=== PATIENT | male | born 1990 | race Caucasian/White ===

== ENCOUNTER 2017-09-24 15:47 | Emergency (ER) | payer OTHER ==
[~2017-09-24] VITALS: Ht 5871 cm; Wt 79.6 kg
[2017-09-24 19:18] LABS: BASOPHILS # (AUTO) 0.1 X10'3 (0-0.2); BASOPHILS % (AUTO) 0.6 % (0-1); EOSINOPHILS # (AUTO) 0.1 X10'3 (0-0.9); EOSINOPHILS % (AUTO) 1.4 % (0-6); HEMATOCRIT 44.1 % (42.0-52.0); HEMOGLOBIN 15.2 g/dl (14.0-17.9); LYMPHOCYTES # (AUTO) 1.8 X10'3 (1.1-4.8); LYMPHOCYTES % (AUTO) 20.2 % (21-51); MEAN CORPUSCULAR HGB CONC 34.5 % (33.0-36.5); MEAN CORPUSCULAR VOLUME 86.9 FL (78-98); MEAN PLATELET VOLUME 8.1 FL (7.4-10.4); MONOCYTES # (AUTO) 0.5 X10'3 (0-0.9); MONOCYTES % (AUTO) 5.8 % (2-12); NEUTROPHILS # (AUTO) 6.6 X10'3 (1.8-7.7); PLATELET COUNT 353 X10'3 (140-440); RED BLOOD COUNT 5.07 X10'6 (4.70-6.10); RED CELL DISTRIBUTION WIDTH 13.7 % (11.5-14.5); WHITE BLOOD COUNT 9.2 X10'3 (4.5-11.0)
[2017-09-24 19:43] LABS: ALANINE AMINOTRANSFERASE 52 U/L (12-78); ALBUMIN 4.1 G/DL (3.4-5.0); ALBUMIN/GLOBULIN RATIO 1.1 (1.1-1.5); ALKALINE PHOSPHATASE 89 IU/L (46-116); ANION GAP 8 (8-16); ASPARTATE AMINO TRANSFERASE 25 U/L (10-37); BILIRUBIN,TOTAL 1.2 MG/DL (0.1-1.0); BLOOD UREA NITROGEN 11 MG/DL (7-18); BUN/CREATININE RATIO 13.3 (5.4-32.0); CALCIUM 9.2 MG/DL (8.5-10.1); CHLORIDE 101 MMOL/L (99-107); CREATININE 0.83 MG/DL (0.60-1.10); ETHANOL < 0.010 GM/DL (0.0-0.010); GLUCOSE 98 MG/DL (70-104); SODIUM 140 MMOL/L (135-145); TOTAL CARBON DIOXIDE 30.6 MMOL/L (24-32); TOTAL PROTEIN 7.8 G/DL (6.4-8.2); eGFR > 90 ML/MIN
[2017-09-25 02:08] LABS: CLARITY,URINE Clear (Clear); GLUCOSE, URINE Negative (Neg); KETONES,URINE Negative (Neg); LEUKOCYTE ESTERASE ,URINE Trace (Neg); NITRITES, URINE Negative (Neg); OCCULT BLOOD,URINE Negative (Neg); PROTEIN,URINE Negative (Neg)
[2017-09-25 02:15] LABS: URINE AMPHETAMINE SCREEN POSITIVE (Neg); URINE BARBITUATE SCREEN NEGATIVE (Neg); URINE BENZODIAZEPINES SCREEN NEGATIVE (Neg); URINE CANNABINOID SCREEN NEGATIVE (Neg); URINE COCAINE SCREEN NEGATIVE (Neg); URINE METHADONE SCREEN NEGATIVE (Neg); URINE OPIATE SCREEN NEGATIVE (Neg); URINE PHENCYCLIDINE SCREEN NEGATIVE (Neg)
[2017-09-25 02:26] LABS: COLOR,URINE DARK YELLOW (Yellow); UA COLLECTION TYPE VOIDED
[2017-09-25 02:32] LABS: BACTERIA,URINE NONE SEEN /HPF (Neg); MUCUS STRANDS MANY /LPF (Neg); RBC,URINE NONE SEEN /HPF (0-2); SQUAMOUS EPITHELIAL CELL,UR FEW /LPF (FEW); WBC,URINE 0-4 /HPF (0-4)
[2017-09-25] MEDS ORDERED: sertraline 50mg tablet PO ONE (08:00)
[2017-09-25] MEDS ORDERED: NO HOME MEDS (09:56)
[2017-09-25] MEDS ORDERED: OLANZapine 2.5MG tablet PO SCH (21:00)
[2017-09-26 12:59] VITALS: BP 116/68
== END 2017-09-26 12:20 ==
LOC: ER 15:48
DX: R45.851 Suicidal ideations (principal); F32.9 Major depressive disorder, single episode, unspecified; F41.9 Anxiety disorder, unspecified; F15.10 Other stimulant abuse, uncomplicated
CPT/HCPCS: 36415; 80053; 80305; 80320; 81001; 84443; 85025; 99285

== ENCOUNTER 2017-11-04 17:02 | Emergency (ER) | payer OTHER ==
[~2017-11-04] VITALS: Ht 182.9 cm; Wt 95.1 kg
[~2017-11-04 17:02] MED LIST: NO HOME MEDS
[2017-11-04 18:16] LABS: BASOPHILS % (AUTO) 0.4 % (0-1); EOSINOPHILS # (AUTO) 0.2 X10'3 (0-0.9); EOSINOPHILS % (AUTO) 2.3 % (0-6); HEMATOCRIT 48.1 % (42.0-52.0); HEMOGLOBIN 16.4 g/dl (14.0-17.9); LYMPHOCYTES # (AUTO) 1.9 X10'3 (1.1-4.8); LYMPHOCYTES % (AUTO) 23.6 % (21-51); MEAN CORPUSCULAR HEMOGLOBIN 29.8 PG (27.0-31.0); MEAN CORPUSCULAR VOLUME 87.7 FL (78-98); MEAN PLATELET VOLUME 8.2 FL (7.4-10.4); MONOCYTES # (AUTO) 0.5 X10'3 (0-0.9); MONOCYTES % (AUTO) 6.2 % (2-12); NEUTROPHILS # (AUTO) 5.3 X10'3 (1.8-7.7); NEUTROPHILS % (AUTO) 67.5 % (42-75); PLATELET COUNT 353 X10'3 (140-440); RED BLOOD COUNT 5.49 X10'6 (4.70-6.10); RED CELL DISTRIBUTION WIDTH 14.1 % (11.5-14.5); WHITE BLOOD COUNT 7.9 X10'3 (4.5-11.0)
[2017-11-04 18:21] LABS: ALANINE AMINOTRANSFERASE 34 U/L (12-78); ALBUMIN 4.1 G/DL (3.4-5.0); ALBUMIN/GLOBULIN RATIO 1.2 (1.1-1.5); ALKALINE PHOSPHATASE 102 IU/L (46-116); ANION GAP 12 (8-16); ASPARTATE AMINO TRANSFERASE 14 U/L (10-37); BLOOD UREA NITROGEN 9 MG/DL (7-18); BUN/CREATININE RATIO 9.4 (5.4-32.0); CALCIUM 8.9 MG/DL (8.5-10.1); CHLORIDE 100 MMOL/L (99-107); CREATININE 0.96 MG/DL (0.60-1.10); ETHANOL < 0.010 GM/DL (0.0-0.010); GLUCOSE 103 MG/DL (70-104); POTASSIUM 3.5 MMOL/L (3.5-5.1); SODIUM 138 MMOL/L (135-145); TOTAL PROTEIN 7.4 G/DL (6.4-8.2); eGFR > 90 ML/MIN
[2017-11-05 05:33] LABS: URINE AMPHETAMINE SCREEN POSITIVE (Neg); URINE BARBITUATE SCREEN NEGATIVE (Neg); URINE BENZODIAZEPINES SCREEN NEGATIVE (Neg); URINE CANNABINOID SCREEN NEGATIVE (Neg); URINE COCAINE SCREEN NEGATIVE (Neg); URINE METHADONE SCREEN NEGATIVE (Neg); URINE OPIATE SCREEN NEGATIVE (Neg); URINE PHENCYCLIDINE SCREEN NEGATIVE (Neg)
[2017-11-06 05:57] VITALS: BP 101/60
[2017-11-06] MEDS ORDERED: QUET50TA PO (06:11)
[2017-11-06] MEDS ORDERED: MIRT30TA8 PO (06:11)
[2017-11-06] MEDS ORDERED: PRAZ1CAP5 PO (08:57)
[2017-11-06] MEDS ORDERED: mirtazapine 15mg tablet PO SCH (21:00)
[2017-11-06] MEDS ORDERED: QUEtiapine 25mg tablet PO SCH (21:00)
[2017-11-06] MEDS ORDERED: prazosin 1mg capsule PO SCH (21:00)
== END 2017-11-06 11:47 ==
LOC: ER 17:03
DX: R45.851 Suicidal ideations (principal); F41.9 Anxiety disorder, unspecified; F32.9 Major depressive disorder, single episode, unspecified; F15.10 Other stimulant abuse, uncomplicated
CPT/HCPCS: 36415; 80053; 80305; 80320; 85025; 99285

== ENCOUNTER 2017-12-04 16:39 | Inpatient (IN) | payer OTHER ==
[~2017-12-04] VITALS: Ht 177.8 cm; Wt 93.6 kg
[~2017-12-04 16:39] MED LIST changes: +MIRT30TA8 PO; +PRAZ1CAP5 PO; +QUET50TA PO; +etomidate 2mg/ml inj. ONE; +rocuronium 10mg/ml inj IV ONE
[2017-12-04] MEDS ORDERED: normal saline 1000ML IV soln IVB ONE (16:45)
[2017-12-04] MEDS ORDERED: midazolam 100mg in NS 100ml 100 ML IV PRN (17:05)
[2017-12-04] MEDS ORDERED: fentaNYL/PF 50MCG/1 ML 2ML syringe IV PRN ×2 (17:05→19:45)
[2017-12-04] MEDS ORDERED: hydrALAZINE 20mg/ml inj. IV ONE (17:10)
[2017-12-04] MEDS ORDERED: propofol 1000mg/100ml bottle 100 ML IV PRN ×2 (17:13→21:39)
[2017-12-04 17:20] LABS: HEMATOCRIT 49.3 % (42.0-52.0); HEMOGLOBIN 16.5 g/dl (14.0-17.9); MEAN CORPUSCULAR HEMOGLOBIN 29.3 PG (27.0-31.0); MEAN CORPUSCULAR HGB CONC 33.4 % (33.0-36.5); MEAN CORPUSCULAR VOLUME 87.6 FL (78-98); MEAN PLATELET VOLUME 8.5 FL (7.4-10.4); PLATELET COUNT 340 X10'3 (140-440); RED BLOOD COUNT 5.62 X10'6 (4.70-6.10); RED CELL DISTRIBUTION WIDTH 14.4 % (11.5-14.5); WHITE BLOOD COUNT 21.7 X10'3 (4.5-11.0)
[2017-12-04 17:27] LABS: INR 1.1 INR; PARTIAL THROMBOPLASTIN TIME 25 SECONDS (22-32); PROTHROMBIN TIME 11.1 SECONDS (9.0-12.0)
[2017-12-04 17:33] LABS: CLARITY,URINE SLIGHTLY CLOUDY (Clear); COLOR,URINE STRAW (Yellow); GLUCOSE, URINE NEGATIVE (Neg); KETONES,URINE NEGATIVE (Neg); LEUKOCYTE ESTERASE ,URINE NEGATIVE (Neg); NITRITES, URINE NEGATIVE (Neg); OCCULT BLOOD,URINE SMALL (Neg); PH,URINE 5.5 (4.8-8.0); PROTEIN,URINE 30 mg/dl (Neg); URINE AMPHETAMINE SCREEN NEGATIVE (Neg); URINE BARBITUATE SCREEN NEGATIVE (Neg); URINE BENZODIAZEPINES SCREEN NEGATIVE (Neg); URINE CANNABINOID SCREEN NEGATIVE (Neg); URINE COCAINE SCREEN NEGATIVE (Neg); URINE METHADONE SCREEN NEGATIVE (Neg); URINE OPIATE SCREEN NEGATIVE (Neg); URINE PHENCYCLIDINE SCREEN NEGATIVE (Neg); UROBILINOGEN,URINE 0.2 E.U/dL (0.2-1.0)
[2017-12-04] MEDS ORDERED: sodium bicarbonate (8.4%) 1 mEq/ml syringe IV ONE (17:35)
[2017-12-04 17:36] LABS: ABG BASE EXCESS -26.7 mmol/L (-2.0-3.0); ABG OXYGEN SATURATION 80.9 % (95-98); ABG PCO2 (T) 20.6 mmHg (35.0-48.0); ABG PH (T) 6.911 (7.350-7.450); ABG PO2 (T) 61.4 mmHg (83-108); ALLEN'S TEST Positive; FCOHb 0.3 % (0.5-1.5); FMetHb 0.8 % (0.3-1.12); PEEP 5 cm H2O; RESPIRATORY RATE 18 b/min; TOTAL HEMOGLOBIN 7.7 G/dl (14.0-18.0)
[2017-12-04 17:37] LABS: LACTIC SEPSIS 1.2 MMOL/L (0.4-2.0)
[2017-12-04 17:44] LABS: ALANINE AMINOTRANSFERASE 33 U/L (12-78); ALBUMIN/GLOBULIN RATIO 1.2 (1.1-1.5); ALKALINE PHOSPHATASE 82 IU/L (46-116); ASPARTATE AMINO TRANSFERASE 15 U/L (10-37); BILIRUBIN,TOTAL 0.5 MG/DL (0.1-1.0); BLOOD UREA NITROGEN 4 MG/DL (7-18); BUN/CREATININE RATIO 2.3 (5.4-32.0); CALCIUM 8.2 MG/DL (8.5-10.1); CHLORIDE 111 MMOL/L (99-107); CREATINE KINASE 101 U/L (39-308); CREATININE 1.72 MG/DL (0.60-1.10); ETHANOL < 0.010 GM/DL (0.0-0.010); GLUCOSE 111 MG/DL (70-104); MAGNESIUM 1.8 MG/DL (1.5-2.4); PHOSPHORUS 2.7 MG/DL (2.3-4.5); SODIUM 144 MMOL/L (135-145); TOTAL PROTEIN 7.3 G/DL (6.4-8.2); eGFR 48 ML/MIN
[2017-12-04 17:45] LABS: URIC ACID CRYSTALS 3+ /HPF (NEGATIVE)
[2017-12-04 17:48] LABS: ANION GAP 28 (8-16)
[2017-12-04 17:51] LABS: ACETAMINOPHEN < 2.0 UG/ML (10-30)
[2017-12-04 17:52] LABS: POTASSIUM 6.1 MMOL/L (3.5-5.1); TOTAL CARBON DIOXIDE < 5 MMOL/L (24-32)
[2017-12-04 17:52] LABS: BACTERIA,URINE FEW /HPF (Neg); RBC,URINE 0-2 /HPF (0-2); SQUAMOUS EPITHELIAL CELL,UR FEW /LPF (FEW); WBC,URINE 0-4 /HPF (0-4)
[2017-12-04] MEDS ORDERED: calcium chloride inj. 1,000 MG in normal saline 100ml IV soln 90 ML IV ONE (17:55)
[2017-12-04 17:58] LABS: PLATELET ESTIMATE NORMAL; TOTAL CELLS COUNTED 100; TOXIC GRANULATION 1+
[2017-12-04 17:59] LABS: TOXIC VACUOLATION 2+
[2017-12-04] MEDS ORDERED: CefTRIAXone 2gm/D5W 50ml 50 ML IV ONE (18:45)
[2017-12-04] MEDS ORDERED: acyclovir 1 GM inj IV SCH (18:50)
[2017-12-04] MEDS ORDERED: NORMAL SALINE IV SCH (18:55)
[2017-12-04] MEDS ORDERED: ACYCLOVIR IV SCH (18:55)
[2017-12-04] MEDS ORDERED: charcoal, activated 50 GM/240 ML bottle PO ONE (19:45)
[2017-12-04] MEDS ORDERED: acetaminophen 325mg tablet PO PRN (19:45)
[2017-12-04] MEDS ORDERED: ipratropium/albuterol 3ml nebule NEB PRN (19:45)
[2017-12-04] MEDS ORDERED: potassium Cl 20 mEq SR tablet PO PRN ×2 (19:45)
[2017-12-04] MEDS ORDERED: ondansetron/PF 4mg/2ml inj IV PRN (19:45)
[2017-12-04] MEDS ORDERED: potassium Cl 40MEQ/NS 500ml 500 ML IV PRN ×2 (19:45)
[2017-12-04] MEDS ORDERED: NORMAL SALINE IV ONE ×2 (19:58→23:10)
[2017-12-04] MEDS ORDERED: ACYCLOVIR IV ONE (19:58)
[2017-12-04] MEDS: docusate sod 100mg capsule PO SCH (20:00)
[2017-12-04] MEDS: magnesium 1gm/100ml D5W IVPB 100 ML IV SCH ×2 (20:06→21:38)
[2017-12-04 20:15] LABS: ALANINE AMINOTRANSFERASE 34 U/L (12-78); ALBUMIN 4.2 G/DL (3.4-5.0); ALBUMIN/GLOBULIN RATIO 1.2 (1.1-1.5); ALKALINE PHOSPHATASE 97 IU/L (46-116); ANION GAP 30 (8-16); ASPARTATE AMINO TRANSFERASE 21 U/L (10-37); BILIRUBIN,TOTAL 0.6 MG/DL (0.1-1.0); BLOOD UREA NITROGEN 6 MG/DL (7-18); BUN/CREATININE RATIO 2.7 (5.4-32.0); CALCIUM 8.8 MG/DL (8.5-10.1); CHLORIDE 109 MMOL/L (99-107); CREATININE 2.21 MG/DL (0.60-1.10); GLUCOSE 169 MG/DL (70-104); MAGNESIUM 1.9 MG/DL (1.5-2.4); PHOSPHORUS 3.5 MG/DL (2.3-4.5); POTASSIUM 5.8 MMOL/L (3.5-5.1); SODIUM 146 MMOL/L (135-145); TOTAL PROTEIN 7.8 G/DL (6.4-8.2); eGFR 36 ML/MIN
[2017-12-04 20:25] LABS: TOTAL CARBON DIOXIDE 7.2 MMOL/L (24-32)
[2017-12-04 20:26] LABS: ABG HCO3 3.7 mmol/L (22.0-26.0); ABG OXYGEN SATURATION 99.2 % (95-98); ABG PCO2 (T) 15.8 mmHg (35.0-48.0); ABG PH (T) 6.992 (7.350-7.450); ABG PO2 (T) 344.7 mmHg (83-108); FCOHb 0.3 % (0.5-1.5); FMetHb 0.8 % (0.3-1.12); FO2Hb 98.1 % (94-100); MINUTE VOLUME 18 L/min; PATIENT TEMPERATURE 37.2; PEEP 5 cm H2O; RESPIRATORY RATE 18 b/min; RESPIRATORY RATE (OBSERVED) 25 b/min; TIDAL VOLUME 475 mL; TOTAL HEMOGLOBIN 16.9 G/dl (14.0-18.0)
[2017-12-04 20:33] LABS: OSMOLALITY 333 MOSM/K (280-300)
[2017-12-04] MEDS: famotidine/PF 10 mg/ml inj IV SCH (20:43)
[2017-12-04] MEDS: heparin, porcine 5000 units/ml vial SQ SCH (20:43)
[2017-12-04 21:15] VITALS: BP 158/89
[2017-12-04] MEDS: sodium bicarbonate (8.4%) inj. 150 MEQ in dextrose 5%-water 1,000 ML IV SCH (21:26)
[2017-12-04 21:39] LABS: CLARITY,URINE Cloudy (Clear); GLUCOSE, URINE Negative (Neg); KETONES,URINE Negative (Neg); LEUKOCYTE ESTERASE ,URINE Negative (Neg); NITRITES, URINE Negative (Neg); OCCULT BLOOD,URINE Trace (Neg); PROTEIN,URINE 100 mg/dl (Neg); UROBILINOGEN,URINE 0.2 E.U/dL (0.2-1.0)
[2017-12-04 21:41] LABS: UA COLLECTION TYPE FOLEY CATH
[2017-12-04 21:47] LABS: RBC,URINE 0-2 /HPF (0-2); WBC,URINE NONE SEEN /HPF (0-4)
[2017-12-04 21:51] LABS: BACTERIA,URINE NONE SEEN /HPF (Neg); CAL OXALATE CRYSTALS 4+ /HPF (NEGATIVE); MUCUS STRANDS NONE SEEN /LPF (Neg); SQUAMOUS EPITHELIAL CELL,UR NONE SEEN /LPF (FEW)
[2017-12-04 22:01] LABS: COLOR,URINE STRAW (Yellow)
[2017-12-04 22:02] LABS: UA COLLECTION TYPE STRAIGHT CATH
[2017-12-04] MEDS: ipratropium/albuterol 3ml nebule NEB SCH (22:06)
[2017-12-04 22:27] LABS: UA EOSINOPHILS NO EOS /HPF
[2017-12-04 22:30] VITALS: BP 164/81
[2017-12-04 22:40] LABS: ABG BASE EXCESS -28.7 mmol/L (-2.0-3.0); ABG HCO3 3.5 mmol/L (22.0-26.0); ABG PCO2 (T) 18.8 mmHg (35.0-48.0); ABG PH (T) 6.885 (7.350-7.450); ABG PO2 (T) 255.5 mmHg (83-108); ALLEN'S TEST Positive; FCOHb 0.3 % (0.5-1.5); FMetHb 0.8 % (0.3-1.12); FO2Hb 97.9 % (94-100); MINUTE VOLUME 20 L/min; PATIENT TEMPERATURE 37.4; PEEP 5 cm H2O; RESPIRATORY RATE 18 b/min; RESPIRATORY RATE (OBSERVED) 25 b/min; TIDAL VOLUME 475 mL; TOTAL HEMOGLOBIN 16.3 G/dl (14.0-18.0)
[2017-12-04 23:00] VITALS: BP 153/79
[2017-12-04 23:07] LABS: BLOOD UREA NITROGEN 8 MG/DL (7-18)
[2017-12-04] MEDS ORDERED: FOMEPIZOLE IV ONE (23:10)
[2017-12-04 23:30] VITALS: BP 153/78
[2017-12-04] MEDS: FENTANYL-0.9 % NACL/PF 100 ML IV PRN (23:37)
[2017-12-05] VITALS (25 sets, daily range): BP systolic 120–171; BP diastolic 55–83
[2017-12-05] MEDS ORDERED: normal saline 1000ml 250 ML IV PRN ×2 (00:28→09:19)
[2017-12-05] MEDS ORDERED: heparin 1,000unit/ml 10ml vial 10 ML IV ONE ×2 (00:28→09:19)
[2017-12-05] MEDS ORDERED: heparin 1,000 units/ml 10ml inj HE ONE ×4 (00:35→09:25)
[2017-12-05] MEDS: propofol 1000mg/100ml bottle 100 ML IV PRN ×5 (01:38→20:56)
[2017-12-05] MEDS: ipratropium/albuterol 3ml nebule NEB SCH ×6 (02:31→23:20)
[2017-12-05 02:35] LABS: ALANINE AMINOTRANSFERASE 32 U/L (12-78); ALBUMIN 3.7 G/DL (3.4-5.0); ALKALINE PHOSPHATASE 97 IU/L (46-116); ASPARTATE AMINO TRANSFERASE 22 U/L (10-37); BILIRUBIN,TOTAL 0.3 MG/DL (0.1-1.0); BLOOD UREA NITROGEN 10 MG/DL (7-18); BUN/CREATININE RATIO 3.4 (5.4-32.0); CALCIUM 7.5 MG/DL (8.5-10.1); CHLORIDE 106 MMOL/L (99-107); CREATININE 2.98 MG/DL (0.60-1.10); GLUCOSE 258 MG/DL (70-104); MAGNESIUM 2.7 MG/DL (1.5-2.4); PHOSPHORUS 3.8 MG/DL (2.3-4.5); SODIUM 143 MMOL/L (135-145); TOTAL PROTEIN 7.3 G/DL (6.4-8.2); TROPONIN I < 0.04 NG/ML (0.0-0.05); eGFR 25 ML/MIN
[2017-12-05 02:55] LABS: POTASSIUM 6.5 MMOL/L (3.5-5.1)
[2017-12-05 02:56] LABS: ANION GAP 32 (8-16); TOTAL CARBON DIOXIDE < 5 MMOL/L (24-32)
[2017-12-05] MEDS ORDERED: heparin 10,000 units/1 ML INJ HE ONE (03:45)
[2017-12-05 04:10] LABS: ABG HCO3 12.6 mmol/L (22.0-26.0); ABG OXYGEN SATURATION 99.1 % (95-98); ABG PCO2 (T) 27.6 mmHg (35.0-48.0); ABG PH (T) 7.283 (7.350-7.450); ABG PO2 (T) 174.6 mmHg (83-108); ALLEN'S TEST Positive; FCOHb 0.3 % (0.5-1.5); FMetHb 0.5 % (0.3-1.12); FO2Hb 98.3 % (94-100); MINUTE VOLUME 16 L/min; PATIENT TEMPERATURE 38.1; PEEP 5 cm H2O; RESPIRATORY RATE 26 b/min; RESPIRATORY RATE (OBSERVED) 30 b/min; TIDAL VOLUME 500 mL; TOTAL HEMOGLOBIN 15.4 G/dl (14.0-18.0)
[2017-12-05] MEDS: sodium bicarbonate (8.4%) inj. 150 MEQ in dextrose 5%-water 1,000 ML IV SCH ×2 (05:49→14:13)
[2017-12-05 05:53] LABS: ALANINE AMINOTRANSFERASE 30 U/L (12-78); ALBUMIN 3.3 G/DL (3.4-5.0); ALBUMIN/GLOBULIN RATIO 1.1 (1.1-1.5); ALKALINE PHOSPHATASE 85 IU/L (46-116); ANION GAP 27 (8-16); ASPARTATE AMINO TRANSFERASE 17 U/L (10-37); BILIRUBIN,TOTAL 0.8 MG/DL (0.1-1.0); BLOOD UREA NITROGEN 7 MG/DL (7-18); BUN/CREATININE RATIO 2.8 (5.4-32.0); CALCIUM 7.2 MG/DL (8.5-10.1); CHLORIDE 102 MMOL/L (99-107); CREATININE 2.54 MG/DL (0.60-1.10); GLUCOSE 160 MG/DL (70-104); MAGNESIUM 1.8 MG/DL (1.5-2.4); PHOSPHORUS 3.1 MG/DL (2.3-4.5); POTASSIUM 3.6 MMOL/L (3.5-5.1); SODIUM 143 MMOL/L (135-145); TOTAL PROTEIN 6.4 G/DL (6.4-8.2); eGFR 30 ML/MIN
[2017-12-05 05:54] LABS: TOTAL CARBON DIOXIDE 13.8 MMOL/L (24-32)
[2017-12-05 06:37] LABS: BASOPHILS % (AUTO) 0 % (0-1); EOSINOPHILS % (AUTO) 0 % (0-6); HEMATOCRIT 44.4 % (42.0-52.0); HEMOGLOBIN 14.8 g/dl (14.0-17.9); LYMPHOCYTES # (AUTO) 1.3 X10'3 (1.1-4.8); LYMPHOCYTES % (AUTO) 4.3 % (21-51); MEAN CORPUSCULAR HEMOGLOBIN 29.1 PG (27.0-31.0); MEAN CORPUSCULAR HGB CONC 33.3 % (33.0-36.5); MEAN CORPUSCULAR VOLUME 87.6 FL (78-98); MEAN PLATELET VOLUME 9.3 FL (7.4-10.4); MONOCYTES # (AUTO) 1.6 X10'3 (0-0.9); NEUTROPHILS # (AUTO) 28.4 X10'3 (1.8-7.7); NEUTROPHILS % (AUTO) 90.7 % (42-75); PLATELET COUNT 254 X10'3 (140-440); RED BLOOD COUNT 5.07 X10'6 (4.70-6.10)
[2017-12-05 06:44] LABS: WHITE BLOOD COUNT 31.3 X10'3 (4.5-11.0)
[2017-12-05 07:39] LABS: TOTAL CELLS COUNTED 100
[2017-12-05 07:41] LABS: BURR CELLS 1+; PLATELET ESTIMATE NORMAL
[2017-12-05] MEDS: docusate sod 100mg capsule PO SCH ×2 (08:00→20:00)
[2017-12-05] MEDS ORDERED: NORMAL SALINE IV SCH (08:00)
[2017-12-05] MEDS ORDERED: FOMEPIZOLE IV SCH (08:00)
[2017-12-05] MEDS: famotidine/PF 10 mg/ml inj IV SCH ×2 (08:41→20:24)
[2017-12-05] MEDS: heparin, porcine 5000 units/ml vial SQ SCH ×2 (08:42→20:24)
[2017-12-05] MEDS ORDERED: LORazepam 2 mg/ml vial ONE (12:55)
[2017-12-05] MEDS: FENTANYL-0.9 % NACL/PF 100 ML IV PRN (14:12)
[2017-12-05] MEDS: LORazepam 2 mg/ml vial IV PRN (15:13)
[2017-12-05] MEDS ORDERED: phenytoin sod 50mg/ml 2ml vial IV SCH (16:35)
[2017-12-05] MEDS ORDERED: FOSphenytoin 500mg inj. 1,000 MG in normal saline 100ml IV soln 100 ML IV ONE (16:40)
[2017-12-05 16:46] LABS: ABG BASE EXCESS 1.4 mmol/L (-2.0-3.0); ABG PCO2 (T) 28.3 mmHg (35.0-48.0); ABG PH (T) 7.528 (7.350-7.450); ALLEN'S TEST Positive; FCOHb 0.1 % (0.5-1.5); FMetHb 0.3 % (0.3-1.12); FO2Hb 96.6 % (94-100); MINUTE VOLUME 17 L/min; PEEP 5 cm H2O; RESPIRATORY RATE 26 b/min; RESPIRATORY RATE (OBSERVED) 28 b/min
[2017-12-05] MEDS: mineral oil/petrolatum ophthal oint EACHEYE SCH (20:00)
[2017-12-06] VITALS (24 sets, daily range): BP systolic 142–174; BP diastolic 74–104
[2017-12-06] MEDS: normal saline 1000ml 1,000 ML IV SCH ×3 (00:28→19:28)
[2017-12-06] MEDS: propofol 1000mg/100ml bottle 100 ML IV PRN ×2 (01:37→08:09)
[2017-12-06] MEDS: mineral oil/petrolatum ophthal oint EACHEYE SCH ×4 (02:00→19:39)
[2017-12-06] MEDS: ipratropium/albuterol 3ml nebule NEB SCH ×6 (03:32→21:26)
[2017-12-06 03:45] LABS: ABG HCO3 31.5 mmol/L (22.0-26.0); ABG OXYGEN SATURATION 97.5 % (95-98); ABG PCO2 (T) 55.9 mmHg (35.0-48.0); ABG PH (T) 7.371 (7.350-7.450); ABG PO2 (T) 102.6 mmHg (83-108); ALLEN'S TEST Positive; FCOHb 0.3 % (0.5-1.5); FMetHb 0.5 % (0.3-1.12); FO2Hb 96.7 % (94-100); MINUTE VOLUME 7 L/min; PATIENT TEMPERATURE 37.6; PEEP 5 cm H2O; RESPIRATORY RATE 12 b/min; RESPIRATORY RATE (OBSERVED) 13 b/min; TIDAL VOLUME 500 mL; TOTAL HEMOGLOBIN 13.5 G/dl (14.0-18.0)
[2017-12-06 05:38] LABS: BASOPHILS % (AUTO) 0.2 % (0-1); EOSINOPHILS % (AUTO) 0 % (0-6); HEMATOCRIT 37.6 % (42.0-52.0); HEMOGLOBIN 12.9 g/dl (14.0-17.9); LYMPHOCYTES # (AUTO) 1.4 X10'3 (1.1-4.8); LYMPHOCYTES % (AUTO) 9.3 % (21-51); MEAN CORPUSCULAR HEMOGLOBIN 29.8 PG (27.0-31.0); MEAN CORPUSCULAR HGB CONC 34.4 % (33.0-36.5); MEAN CORPUSCULAR VOLUME 86.6 FL (78-98); MEAN PLATELET VOLUME 8.6 FL (7.4-10.4); MONOCYTES # (AUTO) 1.1 X10'3 (0-0.9); NEUTROPHILS # (AUTO) 12.8 X10'3 (1.8-7.7); NEUTROPHILS % (AUTO) 83.5 % (42-75); PLATELET COUNT 216 X10'3 (140-440); RED BLOOD COUNT 4.34 X10'6 (4.70-6.10); RED CELL DISTRIBUTION WIDTH 14.1 % (11.5-14.5); WHITE BLOOD COUNT 15.4 X10'3 (4.5-11.0)
[2017-12-06 06:15] LABS: ALANINE AMINOTRANSFERASE 23 U/L (12-78); ALBUMIN 2.9 G/DL (3.4-5.0); ALKALINE PHOSPHATASE 73 IU/L (46-116); ANION GAP 12 (8-16); ASPARTATE AMINO TRANSFERASE 15 U/L (10-37); BILIRUBIN,TOTAL 0.7 MG/DL (0.1-1.0); BLOOD UREA NITROGEN 14 MG/DL (7-18); BUN/CREATININE RATIO 3.1 (5.4-32.0); CALCIUM 7.1 MG/DL (8.5-10.1); CHLORIDE 100 MMOL/L (99-107); CREATININE 4.57 MG/DL (0.60-1.10); GLUCOSE 105 MG/DL (70-104); MAGNESIUM 2.3 MG/DL (1.5-2.4); PHOSPHORUS 6.4 MG/DL (2.3-4.5); SODIUM 141 MMOL/L (135-145); TOTAL PROTEIN 5.7 G/DL (6.4-8.2); eGFR 15 ML/MIN
[2017-12-06 06:16] LABS: POTASSIUM 3.2 MMOL/L (3.5-5.1)
[2017-12-06] MEDS: famotidine/PF 10 mg/ml inj IV SCH ×2 (07:18→19:39)
[2017-12-06] MEDS: heparin, porcine 5000 units/ml vial SQ SCH ×2 (07:18→19:40)
[2017-12-06] MEDS: docusate sod 100mg capsule PO SCH ×2 (07:24→19:39)
[2017-12-06] MEDS: FENTANYL-0.9 % NACL/PF 100 ML IV PRN (08:28)
[2017-12-06 09:06] LABS: CREATINE KINASE 266 U/L (39-308)
[2017-12-06] MEDS ORDERED: racepinephrine 11.25mg/0.5ml nebule NEB PRN (13:20)
[2017-12-06] MEDS ORDERED: ipratropium/albuterol 3ml nebule NEB PRN (13:20)
[2017-12-06] MEDS: acetaminophen 325mg tablet PO PRN (16:14)
[2017-12-07] VITALS (23 sets, daily range): BP systolic 98–186; BP diastolic 65–103
[2017-12-07] MEDS: mineral oil/petrolatum ophthal oint EACHEYE SCH ×3 (02:00→13:42)
[2017-12-07] MEDS: ipratropium/albuterol 3ml nebule NEB SCH ×5 (02:43→23:39)
[2017-12-07 04:43] LABS: BASOPHILS % (AUTO) 0.1 % (0-1); EOSINOPHILS % (AUTO) 0.1 % (0-6); HEMATOCRIT 34.2 % (42.0-52.0); HEMOGLOBIN 11.7 g/dl (14.0-17.9); LYMPHOCYTES % (AUTO) 7.5 % (21-51); MEAN CORPUSCULAR HEMOGLOBIN 29.4 PG (27.0-31.0); MEAN CORPUSCULAR HGB CONC 34.2 % (33.0-36.5); MEAN PLATELET VOLUME 8.3 FL (7.4-10.4); MONOCYTES % (AUTO) 7.3 % (2-12); NEUTROPHILS # (AUTO) 11.3 X10'3 (1.8-7.7); PLATELET COUNT 194 X10'3 (140-440); RED BLOOD COUNT 3.98 X10'6 (4.70-6.10); RED CELL DISTRIBUTION WIDTH 14.3 % (11.5-14.5); WHITE BLOOD COUNT 13.4 X10'3 (4.5-11.0)
[2017-12-07 04:57] LABS: ALANINE AMINOTRANSFERASE 25 U/L (12-78); ALBUMIN 2.8 G/DL (3.4-5.0); ALBUMIN/GLOBULIN RATIO 0.9 (1.1-1.5); ALKALINE PHOSPHATASE 71 IU/L (46-116); ANION GAP 12 (8-16); ASPARTATE AMINO TRANSFERASE 17 U/L (10-37); BLOOD UREA NITROGEN 29 MG/DL (7-18); BUN/CREATININE RATIO 3.6 (5.4-32.0); CALCIUM 7.7 MG/DL (8.5-10.1); CHLORIDE 102 MMOL/L (99-107); CREATININE 7.95 MG/DL (0.60-1.10); GLUCOSE 111 MG/DL (70-104); MAGNESIUM 2.4 MG/DL (1.5-2.4); PHOSPHORUS 5.7 MG/DL (2.3-4.5); POTASSIUM 3.2 MMOL/L (3.5-5.1); SODIUM 141 MMOL/L (135-145); TOTAL CARBON DIOXIDE 27.3 MMOL/L (24-32); TOTAL PROTEIN 5.8 G/DL (6.4-8.2); eGFR 8 ML/MIN
[2017-12-07] MEDS: normal saline 1000ml 1,000 ML IV SCH (05:30)
[2017-12-07] MEDS: famotidine/PF 10 mg/ml inj IV SCH (07:58)
[2017-12-07] MEDS: heparin, porcine 5000 units/ml vial SQ SCH ×2 (07:58→20:47)
[2017-12-07] MEDS: docusate sod 100mg capsule PO SCH ×2 (07:58→20:00)
[2017-12-07] MEDS ORDERED: NORMAL SALINE IV SCH (08:00)
[2017-12-07] MEDS ORDERED: FOMEPIZOLE IV SCH (08:00)
[2017-12-07] MEDS ORDERED: LORazepam 2 mg/ml vial IV ONE (11:15)
[2017-12-07 12:30] LABS: ABG BASE EXCESS -0.5 mmol/L (-2.0-3.0); ABG HCO3 23.4 mmol/L (22.0-26.0); ABG OXYGEN SATURATION 85.9 % (95-98); ABG PCO2 (T) 37.7 mmHg (35.0-48.0); ABG PH (T) 7.416 (7.350-7.450); ABG PO2 (T) 52.7 mmHg (83-108); ALLEN'S TEST Positive; FCOHb 0.2 % (0.5-1.5); FLOW 5 L/min; FMetHb 0.3 % (0.3-1.12); FO2Hb 85.5 % (94-100); PATIENT TEMPERATURE 38.1
[2017-12-07] MEDS: acetaminophen 650mg rectal suppository RC PRN (13:42)
[2017-12-07] MEDS ORDERED: normal saline 1000ml 250 ML IV PRN (14:22)
[2017-12-07] MEDS ORDERED: heparin 1,000unit/ml 10ml vial 10 ML IV ONE (14:22)
[2017-12-07] MEDS ORDERED: nitroGLYCERIN 1gm ointment UD TP SCH (14:25)
[2017-12-07] MEDS ORDERED: furosemide 10 MG/1 ML 10ml inj IV ONE ×2 (14:25→14:30)
[2017-12-07] MEDS ORDERED: heparin 1,000 units/ml 10ml inj HE ONE ×2 (14:30)
[2017-12-07] MEDS: furosemide 40mg/4ml inj ONE ×2 (14:38→14:42)
[2017-12-07] MEDS: LORazepam 2 mg/ml vial IV PRN (15:47)
[2017-12-07] MEDS ORDERED: MIDAZolam 5mg/ml 2ml vial ONE (16:36)
[2017-12-07] MEDS ORDERED: etomidate 2mg/ml inj. IV ONE (17:10)
[2017-12-07] MEDS ORDERED: MIDAZolam 5mg/ml 2ml vial IV ONE ×2 (17:10→17:50)
[2017-12-07] MEDS ORDERED: rocuronium 10mg/ml inj IV ONE (17:10)
[2017-12-07 17:16] LABS: ABG BASE EXCESS -3.5 mmol/L (-2.0-3.0); ABG HCO3 23.7 mmol/L (22.0-26.0); ABG OXYGEN SATURATION 74.8 % (95-98); ABG PCO2 (T) 57.1 mmHg (35.0-48.0); ABG PH (T) 7.249 (7.350-7.450); ABG PO2 (T) 51.5 mmHg (83-108); FCOHb 0.5 % (0.5-1.5); FMetHb 0.4 % (0.3-1.12); FO2Hb 74.1 % (94-100); PATIENT TEMPERATURE 39.6; PEEP 10 cm H2O; RESPIRATORY RATE 16 b/min; TIDAL VOLUME 500 mL; TOTAL HEMOGLOBIN 15.3 G/dl (14.0-18.0)
[2017-12-07] MEDS ORDERED: albuterol 2.5 MG/3 ML nebule NEB PRN (17:20)
[2017-12-07] MEDS ORDERED: midazolam 2 mg/2 ml injection IV ONE (17:20)
[2017-12-07] MEDS ORDERED: propofol 1000mg/100ml bottle 100 ML IV PRN (17:29)
[2017-12-07] MEDS: piperacillin-tazo 2.25gm/50ml 50 ML IV SCH ×2 (17:30→20:48)
[2017-12-07] MEDS: acetaminophen 325mg tablet PO PRN (23:29)
[2017-12-07] MEDS: midazolam 100mg in NS 100ml 100 ML IV PRN (23:41)
[2017-12-08] VITALS (23 sets, daily range): BP systolic 121–159; BP diastolic 87–105
[2017-12-08] MEDS: piperacillin-tazo 2.25gm/50ml 50 ML IV SCH ×4 (02:01→20:23)
[2017-12-08] MEDS: FENTANYL-0.9 % NACL/PF 100 ML IV PRN ×3 (02:01→20:39)
[2017-12-08] MEDS: ipratropium/albuterol 3ml nebule NEB SCH ×6 (03:34→23:25)
[2017-12-08 03:51] LABS: ABG BASE EXCESS -0.8 mmol/L (-2.0-3.0); ABG HCO3 23.4 mmol/L (22.0-26.0); ABG OXYGEN SATURATION 95.9 % (95-98); ABG PCO2 (T) 38.7 mmHg (35.0-48.0); ABG PH (T) 7.403 (7.350-7.450); ABG PO2 (T) 85.8 mmHg (83-108); FCOHb 0.2 % (0.5-1.5); FMetHb 0.2 % (0.3-1.12); FO2Hb 95.5 % (94-100); MINUTE VOLUME 16 L/min; PATIENT TEMPERATURE 37.7; PEEP 10 cm H2O; RESPIRATORY RATE 18 b/min; RESPIRATORY RATE (OBSERVED) 23 b/min; TIDAL VOLUME 500 mL; TOTAL HEMOGLOBIN 13.8 G/dl (14.0-18.0)
[2017-12-08 05:49] LABS: BASOPHILS % (AUTO) 0 % (0-1); EOSINOPHILS % (AUTO) 0.1 % (0-6); HEMATOCRIT 41.7 % (42.0-52.0); HEMOGLOBIN 14.2 g/dl (14.0-17.9); LYMPHOCYTES # (AUTO) 0.9 X10'3 (1.1-4.8); MEAN CORPUSCULAR HEMOGLOBIN 29.4 PG (27.0-31.0); MEAN CORPUSCULAR VOLUME 86.5 FL (78-98); MEAN PLATELET VOLUME 8.7 FL (7.4-10.4); MONOCYTES # (AUTO) 0.4 X10'3 (0-0.9); MONOCYTES % (AUTO) 2.8 % (2-12); NEUTROPHILS # (AUTO) 14.3 X10'3 (1.8-7.7); NEUTROPHILS % (AUTO) 91.1 % (42-75); PLATELET COUNT 199 X10'3 (140-440); RED BLOOD COUNT 4.82 X10'6 (4.70-6.10); RED CELL DISTRIBUTION WIDTH 14.4 % (11.5-14.5); WHITE BLOOD COUNT 15.7 X10'3 (4.5-11.0)
[2017-12-08] MEDS: acetaminophen 325mg tablet PO PRN ×2 (05:52→17:27)
[2017-12-08 06:00] LABS: ALANINE AMINOTRANSFERASE 17 U/L (12-78); ALBUMIN 2.5 G/DL (3.4-5.0); ALBUMIN/GLOBULIN RATIO 0.7 (1.1-1.5); ALKALINE PHOSPHATASE 81 IU/L (46-116); ANION GAP 14 (8-16); ASPARTATE AMINO TRANSFERASE 17 U/L (10-37); BILIRUBIN,TOTAL 1.6 MG/DL (0.1-1.0); BLOOD UREA NITROGEN 34 MG/DL (7-18); BUN/CREATININE RATIO 4.3 (5.4-32.0); CALCIUM 7.4 MG/DL (8.5-10.1); CHLORIDE 99 MMOL/L (99-107); CREATININE 7.86 MG/DL (0.60-1.10); GLUCOSE 123 MG/DL (70-104); MAGNESIUM 1.9 MG/DL (1.5-2.4); PHOSPHORUS 5.1 MG/DL (2.3-4.5); POTASSIUM 4.4 MMOL/L (3.5-5.1); SODIUM 137 MMOL/L (135-145); TOTAL PROTEIN 6.2 G/DL (6.4-8.2); eGFR 8 ML/MIN
[2017-12-08 06:20] LABS: BANDS% (MANUAL) 14 % (0-10); LYMPHOCYTES % (MANUAL) 4 % (21-51); MONOCYTES % (MANUAL) 4 % (2-12); NEUTROPHILS % (MANUAL) 78 % (42-75); TOTAL CELLS COUNTED 100
[2017-12-08 06:21] LABS: PLATELET ESTIMATE NORMAL
[2017-12-08] MEDS: heparin, porcine 5000 units/ml vial SQ SCH ×2 (07:41→20:24)
[2017-12-08] MEDS: docusate sod 100mg capsule PO SCH ×2 (07:42→20:00)
[2017-12-08] MEDS: midazolam 100mg in NS 100ml 100 ML IV PRN ×2 (08:00→18:14)
[2017-12-08] MEDS ORDERED: normal saline 1000ml 250 ML IV PRN ×2 (08:00→08:33)
[2017-12-08] MEDS ORDERED: heparin 1,000 units/ml 10ml inj HE ONE ×4 (08:00→08:40)
[2017-12-08] MEDS ORDERED: heparin 1,000unit/ml 10ml vial 10 ML IV ONE ×2 (08:00→08:33)
[2017-12-08] MEDS: acetaminophen 650mg rectal suppository RC PRN (11:32)
[2017-12-08 13:06] LABS: PREALBUMIN 13.5 MG/DL (19-36)
[2017-12-08] MEDS ORDERED: vancomycin inj 1,250 MG in normal saline 250ml IV soln 250 ML IV SCH (18:00)
[2017-12-08] MEDS ORDERED: mineral oil/petrolatum ophthal oint EACHEYE SCH (20:00)
[2017-12-08] MEDS: lactobacillus rhamnosus 10,000 MMU CELLS/CAPSULE PO SCH (20:24)
[2017-12-08] MEDS: mineral oil/petrolatum ophthal oint EACHEYE SCH (20:26)
[2017-12-08] MEDS: VANCOMYCIN LEVEL IV SCH (23:42)
[2017-12-09] VITALS (24 sets, daily range): BP systolic 125–168; BP diastolic 71–106
[2017-12-09] MEDS: acetaminophen 325mg tablet PO PRN (01:07)
[2017-12-09] MEDS: mineral oil/petrolatum ophthal oint EACHEYE SCH ×4 (02:00→19:09)
[2017-12-09] MEDS: piperacillin-tazo 2.25gm/50ml 50 ML IV SCH ×4 (02:00→19:09)
[2017-12-09] MEDS: VANCOMYCIN LEVEL IV SCH (03:00)
[2017-12-09] MEDS: ipratropium/albuterol 3ml nebule NEB SCH ×6 (03:23→23:20)
[2017-12-09] MEDS: FENTANYL-0.9 % NACL/PF 100 ML IV PRN ×2 (03:40→20:45)
[2017-12-09] MEDS: midazolam 100mg in NS 100ml 100 ML IV PRN ×2 (03:40→07:53)
[2017-12-09 04:31] LABS: ABG BASE EXCESS -2.3 mmol/L (-2.0-3.0); ABG HCO3 22.1 mmol/L (22.0-26.0); ABG OXYGEN SATURATION 90.7 % (95-98); ABG PCO2 (T) 37.6 mmHg (35.0-48.0); ABG PH (T) 7.389 (7.350-7.450); ABG PO2 (T) 64.5 mmHg (83-108); ALLEN'S TEST Positive; FCOHb 0.3 % (0.5-1.5); FMetHb 0.3 % (0.3-1.12); FO2Hb 90.2 % (94-100); MINUTE VOLUME 18 L/min; PATIENT TEMPERATURE 37.4; PEEP 10 cm H2O; RESPIRATORY RATE 18 b/min; RESPIRATORY RATE (OBSERVED) 20 b/min; TIDAL VOLUME 500 mL; TOTAL HEMOGLOBIN 12.8 G/dl (14.0-18.0)
[2017-12-09 05:36] LABS: BASOPHILS % (AUTO) 0 % (0-1); EOSINOPHILS # (AUTO) 0.2 X10'3 (0-0.9); EOSINOPHILS % (AUTO) 1.4 % (0-6); HEMATOCRIT 35.4 % (42.0-52.0); HEMOGLOBIN 12.3 g/dl (14.0-17.9); LYMPHOCYTES # (AUTO) 0.8 X10'3 (1.1-4.8); LYMPHOCYTES % (AUTO) 7.7 % (21-51); MEAN CORPUSCULAR HEMOGLOBIN 30.1 PG (27.0-31.0); MEAN CORPUSCULAR HGB CONC 34.7 % (33.0-36.5); MEAN CORPUSCULAR VOLUME 86.9 FL (78-98); MEAN PLATELET VOLUME 8.3 FL (7.4-10.4); MONOCYTES # (AUTO) 0.7 X10'3 (0-0.9); MONOCYTES % (AUTO) 6.6 % (2-12); NEUTROPHILS # (AUTO) 9.2 X10'3 (1.8-7.7); NEUTROPHILS % (AUTO) 84.3 % (42-75); PLATELET COUNT 197 X10'3 (140-440); RED BLOOD COUNT 4.07 X10'6 (4.70-6.10); RED CELL DISTRIBUTION WIDTH 14.1 % (11.5-14.5); WHITE BLOOD COUNT 10.9 X10'3 (4.5-11.0)
[2017-12-09] MEDS ORDERED: vancomycin inj 1,250 MG in normal saline 250ml IV soln 250 ML IV PRN (06:00)
[2017-12-09 06:22] LABS: ALANINE AMINOTRANSFERASE 18 U/L (12-78); ALBUMIN 2.1 G/DL (3.4-5.0); ALBUMIN/GLOBULIN RATIO 0.5 (1.1-1.5); ALKALINE PHOSPHATASE 72 IU/L (46-116); ANION GAP 12 (8-16); ASPARTATE AMINO TRANSFERASE 17 U/L (10-37); BILIRUBIN,TOTAL 0.9 MG/DL (0.1-1.0); BLOOD UREA NITROGEN 39 MG/DL (7-18); BUN/CREATININE RATIO 5.2 (5.4-32.0); CALCIUM 8.5 MG/DL (8.5-10.1); CHLORIDE 99 MMOL/L (99-107); CREATININE 7.53 MG/DL (0.60-1.10); GLUCOSE 102 MG/DL (70-104); MAGNESIUM 2.5 MG/DL (1.5-2.4); PHOSPHORUS 5.7 MG/DL (2.3-4.5); SODIUM 136 MMOL/L (135-145); TOTAL CARBON DIOXIDE 25.3 MMOL/L (24-32); VANCOMYCIN,RANDOM 13.9 UG/ML; eGFR 9 ML/MIN
[2017-12-09] MEDS: heparin, porcine 5000 units/ml vial SQ SCH ×2 (07:17→19:09)
[2017-12-09] MEDS: lactobacillus rhamnosus 10,000 MMU CELLS/CAPSULE PO SCH ×2 (07:17→19:09)
[2017-12-09] MEDS ORDERED: vancomycin inj 1,250 MG in normal saline 250ml IV soln 250 ML IV ONE (07:55)
[2017-12-09] MEDS: docusate sod 100mg capsule PO SCH ×2 (08:00→19:10)
[2017-12-09] MEDS: dexmedetomidin/NS 400mcg/100ml 100 ML IV SCH ×3 (09:00→22:59)
[2017-12-09 09:16] LABS: ABG BASE EXCESS -0.7 mmol/L (-2.0-3.0); ABG HCO3 24.2 mmol/L (22.0-26.0); ABG OXYGEN SATURATION 93.8 % (95-98); ABG PCO2 (T) 40.8 mmHg (35.0-48.0); ABG PH (T) 7.391 (7.350-7.450); ABG PO2 (T) 70.8 mmHg (83-108); ALLEN'S TEST Positive; FCOHb 0.3 % (0.5-1.5); FMetHb 0.3 % (0.3-1.12); FO2Hb 93.2 % (94-100); MINUTE VOLUME 13 L/min; PEEP 5 cm H2O; RESPIRATORY RATE 18 b/min; RESPIRATORY RATE (OBSERVED) 20 b/min; TIDAL VOLUME 500 mL; TOTAL HEMOGLOBIN 12.3 G/dl (14.0-18.0)
[2017-12-09 15:13] LABS: HBSAG SCREEN Negative (Negative)
[2017-12-10] VITALS (31 sets, daily range): BP systolic 135–182; BP diastolic 72–109
[2017-12-10] MEDS: mineral oil/petrolatum ophthal oint EACHEYE SCH ×4 (01:46→20:00)
[2017-12-10] MEDS: piperacillin-tazo 2.25gm/50ml 50 ML IV SCH ×4 (01:47→21:00)
[2017-12-10] MEDS: VANCOMYCIN LEVEL IV SCH (03:00)
[2017-12-10] MEDS: ipratropium/albuterol 3ml nebule NEB SCH ×6 (03:06→23:44)
[2017-12-10 04:26] LABS: ABG BASE EXCESS -3.3 mmol/L (-2.0-3.0); ABG HCO3 20.1 mmol/L (22.0-26.0); ABG OXYGEN SATURATION 98.3 % (95-98); ABG PO2 (T) 127.6 mmHg (83-108); ALLEN'S TEST Positive; FCOHb 0.3 % (0.5-1.5); FMetHb 0.1 % (0.3-1.12); FO2Hb 97.9 % (94-100); MINUTE VOLUME 9 L/min; PATIENT TEMPERATURE 36.5; PEEP 5 cm H2O; RESPIRATORY RATE 18 b/min; RESPIRATORY RATE (OBSERVED) 18 b/min; TIDAL VOLUME 500 mL; TOTAL HEMOGLOBIN 11.2 G/dl (14.0-18.0)
[2017-12-10 04:50] LABS: BASOPHILS % (AUTO) 0.3 % (0-1); EOSINOPHILS # (AUTO) 0.4 X10'3 (0-0.9); HEMATOCRIT 31.9 % (42.0-52.0); HEMOGLOBIN 11.1 g/dl (14.0-17.9); LYMPHOCYTES # (AUTO) 1.4 X10'3 (1.1-4.8); LYMPHOCYTES % (AUTO) 12.2 % (21-51); MEAN CORPUSCULAR HEMOGLOBIN 30.2 PG (27.0-31.0); MEAN CORPUSCULAR HGB CONC 34.8 % (33.0-36.5); MEAN CORPUSCULAR VOLUME 86.8 FL (78-98); MEAN PLATELET VOLUME 8.3 FL (7.4-10.4); MONOCYTES % (AUTO) 8.3 % (2-12); NEUTROPHILS % (AUTO) 76.2 % (42-75); PLATELET COUNT 238 X10'3 (140-440); RED BLOOD COUNT 3.67 X10'6 (4.70-6.10); WHITE BLOOD COUNT 11.8 X10'3 (4.5-11.0)
[2017-12-10 05:09] LABS: ALANINE AMINOTRANSFERASE 14 U/L (12-78); ALBUMIN 1.8 G/DL (3.4-5.0); ALBUMIN/GLOBULIN RATIO 0.4 (1.1-1.5); ALKALINE PHOSPHATASE 109 IU/L (46-116); ANION GAP 14 (8-16); ASPARTATE AMINO TRANSFERASE 27 U/L (10-37); BILIRUBIN,TOTAL 0.8 MG/DL (0.1-1.0); BLOOD UREA NITROGEN 67 MG/DL (7-18); CALCIUM 8.3 MG/DL (8.5-10.1); CHLORIDE 99 MMOL/L (99-107); CREATININE 9.59 MG/DL (0.60-1.10); GLUCOSE 99 MG/DL (70-104); MAGNESIUM 2.9 MG/DL (1.5-2.4); PHOSPHORUS 6.6 MG/DL (2.3-4.5); SODIUM 138 MMOL/L (135-145); TOTAL CARBON DIOXIDE 25.1 MMOL/L (24-32); TOTAL PROTEIN 6.1 G/DL (6.4-8.2); VANCOMYCIN,RANDOM 36.1 UG/ML; eGFR 7 ML/MIN
[2017-12-10 05:15] LABS: POTASSIUM 4.2 MMOL/L (3.5-5.1)
[2017-12-10] MEDS: dexmedetomidin/NS 400mcg/100ml 100 ML IV SCH ×4 (05:46→23:53)
[2017-12-10] MEDS ORDERED: heparin 1,000 units/ml 10ml inj HE ONE ×4 (08:00→14:40)
[2017-12-10] MEDS ORDERED: normal saline 1000ml 250 ML IV PRN (08:00)
[2017-12-10] MEDS ORDERED: heparin 1,000unit/ml 10ml vial 10 ML IV ONE ×3 (08:00→14:33)
[2017-12-10] MEDS: docusate sod 100mg capsule PO SCH ×2 (08:00→20:00)
[2017-12-10] MEDS: heparin, porcine 5000 units/ml vial SQ SCH ×2 (08:00→21:03)
[2017-12-10] MEDS: FENTANYL-0.9 % NACL/PF 100 ML IV PRN ×2 (08:23→21:05)
[2017-12-10] MEDS: lactobacillus rhamnosus 10,000 MMU CELLS/CAPSULE PO SCH ×2 (08:23→20:59)
[2017-12-10] MEDS ORDERED: acetaminophen 325mg/10.15ml oral unit dose solution PO PRN (08:26)
[2017-12-10] MEDS: acetaminophen 325mg/10.15ml oral unit dose solution PO PRN (08:36)
[2017-12-10] MEDS: midazolam 100mg in NS 100ml 100 ML IV PRN (10:52)
[2017-12-10] MEDS ORDERED: tPA-cathflo 2 MG/2 ml IV flush IVF ONE ×2 (11:15)
[2017-12-10] MEDS ORDERED: LIDOcaine 1%/PF 5ML 10 MG/ML VIAL ONE (14:18)
[2017-12-10] MEDS ORDERED: heparin 1,000unit/ml 10ml vial 10 ML ONE (14:48)
[2017-12-11] VITALS (24 sets, daily range): BP systolic 134–180; BP diastolic 82–108
[2017-12-11] MEDS: mineral oil/petrolatum ophthal oint EACHEYE SCH ×4 (02:21→20:00)
[2017-12-11] MEDS: piperacillin-tazo 2.25gm/50ml 50 ML IV SCH ×4 (02:21→21:33)
[2017-12-11] MEDS: VANCOMYCIN LEVEL IV SCH (03:00)
[2017-12-11] MEDS: ipratropium/albuterol 3ml nebule NEB SCH ×6 (03:17→23:12)
[2017-12-11 03:30] LABS: ABG BASE EXCESS -1.5 mmol/L (-2.0-3.0); ABG HCO3 21.6 mmol/L (22.0-26.0); ABG OXYGEN SATURATION 95.3 % (95-98); ABG PCO2 (T) 32.2 mmHg (35.0-48.0); ABG PH (T) 7.447 (7.350-7.450); ALLEN'S TEST Positive; FCOHb 0.3 % (0.5-1.5); FMetHb 0.3 % (0.3-1.12); FO2Hb 94.7 % (94-100); MINUTE VOLUME 9 L/min; PATIENT TEMPERATURE 37.6; PEEP 5 cm H2O; RESPIRATORY RATE 18 b/min; RESPIRATORY RATE (OBSERVED) 18 b/min; TIDAL VOLUME 500 mL; TOTAL HEMOGLOBIN 12.2 G/dl (14.0-18.0)
[2017-12-11 05:09] LABS: BASOPHILS % (AUTO) 0.3 % (0-1); EOSINOPHILS # (AUTO) 0.3 X10'3 (0-0.9); EOSINOPHILS % (AUTO) 2.9 % (0-6); HEMATOCRIT 34.7 % (42.0-52.0); HEMOGLOBIN 11.8 g/dl (14.0-17.9); LYMPHOCYTES # (AUTO) 1.5 X10'3 (1.1-4.8); LYMPHOCYTES % (AUTO) 14.2 % (21-51); MEAN CORPUSCULAR HEMOGLOBIN 29.5 PG (27.0-31.0); MEAN CORPUSCULAR HGB CONC 34.1 % (33.0-36.5); MEAN CORPUSCULAR VOLUME 86.5 FL (78-98); MEAN PLATELET VOLUME 8.1 FL (7.4-10.4); MONOCYTES # (AUTO) 1.5 X10'3 (0-0.9); MONOCYTES % (AUTO) 14.2 % (2-12); NEUTROPHILS % (AUTO) 68.4 % (42-75); PLATELET COUNT 247 X10'3 (140-440); RED BLOOD COUNT 4.01 X10'6 (4.70-6.10); RED CELL DISTRIBUTION WIDTH 14.1 % (11.5-14.5); WHITE BLOOD COUNT 10.3 X10'3 (4.5-11.0)
[2017-12-11 05:20] LABS: ALANINE AMINOTRANSFERASE 22 U/L (12-78); ALBUMIN 1.9 G/DL (3.4-5.0); ALBUMIN/GLOBULIN RATIO 0.4 (1.1-1.5); ALKALINE PHOSPHATASE 172 IU/L (46-116); ANION GAP 9 (8-16); ASPARTATE AMINO TRANSFERASE 34 U/L (10-37); BILIRUBIN,TOTAL 0.8 MG/DL (0.1-1.0); BLOOD UREA NITROGEN 42 MG/DL (7-18); BUN/CREATININE RATIO 7.2 (5.4-32.0); CALCIUM 8.7 MG/DL (8.5-10.1); CHLORIDE 100 MMOL/L (99-107); CREATININE 5.87 MG/DL (0.60-1.10); GLUCOSE 105 MG/DL (70-104); MAGNESIUM 2.5 MG/DL (1.5-2.4); PHOSPHORUS 4.3 MG/DL (2.3-4.5); PREALBUMIN 13.4 MG/DL (19-36); SODIUM 138 MMOL/L (135-145); TOTAL CARBON DIOXIDE 29.2 MMOL/L (24-32); TOTAL PROTEIN 6.2 G/DL (6.4-8.2); VANCOMYCIN,RANDOM 17.5 UG/ML; eGFR 12 ML/MIN
[2017-12-11] MEDS: FENTANYL-0.9 % NACL/PF 100 ML IV PRN ×2 (05:31→14:27)
[2017-12-11] MEDS: heparin, porcine 5000 units/ml vial SQ SCH ×2 (07:56→21:33)
[2017-12-11] MEDS: lactobacillus rhamnosus 10,000 MMU CELLS/CAPSULE PO SCH ×2 (07:56→21:33)
[2017-12-11] MEDS: dexmedetomidin/NS 400mcg/100ml 100 ML IV SCH ×2 (07:59→15:46)
[2017-12-11] MEDS: midazolam 100mg in NS 100ml 100 ML IV PRN ×2 (07:59→23:05)
[2017-12-11] MEDS: docusate sod 100mg capsule PO SCH (08:00)
[2017-12-11] MEDS: acetaminophen 325mg/10.15ml oral unit dose solution PO PRN (11:44)
[2017-12-11] MEDS: docusate sodium 100mg/10ml UD cup PO SCH ×2 (11:44→20:00)
[2017-12-11] MEDS ORDERED: hydrALAZINE 20mg/ml inj. IV PRN (18:05)
[2017-12-12] VITALS (24 sets, daily range): BP systolic 143–212; BP diastolic 74–129
[2017-12-12] MEDS: dexmedetomidin/NS 400mcg/100ml 100 ML IV SCH ×2 (01:11→07:30)
[2017-12-12] MEDS: FENTANYL-0.9 % NACL/PF 100 ML IV PRN (01:12)
[2017-12-12] MEDS: mineral oil/petrolatum ophthal oint EACHEYE SCH ×4 (02:05→19:57)
[2017-12-12] MEDS: piperacillin-tazo 2.25gm/50ml 50 ML IV SCH ×4 (02:05→19:56)
[2017-12-12] MEDS: VANCOMYCIN LEVEL IV SCH (03:00)
[2017-12-12] MEDS: ipratropium/albuterol 3ml nebule NEB SCH ×5 (03:40→21:00)
[2017-12-12 04:00] LABS: ABG BASE EXCESS -0.3 mmol/L (-2.0-3.0); ABG HCO3 24.2 mmol/L (22.0-26.0); ABG OXYGEN SATURATION 96.6 % (95-98); ABG PCO2 (T) 38.9 mmHg (35.0-48.0); ABG PH (T) 7.411 (7.350-7.450); ABG PO2 (T) 89.3 mmHg (83-108); ALLEN'S TEST Positive; FCOHb 0.2 % (0.5-1.5); FMetHb 0.2 % (0.3-1.12); FO2Hb 96.2 % (94-100); MINUTE VOLUME 7 L/min; PATIENT TEMPERATURE 36.9; PEEP 5 cm H2O; RESPIRATORY RATE (OBSERVED) 16 b/min; TOTAL HEMOGLOBIN 12.4 G/dl (14.0-18.0)
[2017-12-12 05:37] LABS: BASOPHILS % (AUTO) 0.3 % (0-1); EOSINOPHILS # (AUTO) 0.4 X10'3 (0-0.9); EOSINOPHILS % (AUTO) 3.5 % (0-6); HEMATOCRIT 32.6 % (42.0-52.0); HEMOGLOBIN 11.4 g/dl (14.0-17.9); LYMPHOCYTES # (AUTO) 1.2 X10'3 (1.1-4.8); MEAN CORPUSCULAR HEMOGLOBIN 29.7 PG (27.0-31.0); MEAN CORPUSCULAR HGB CONC 34.8 % (33.0-36.5); MEAN CORPUSCULAR VOLUME 85.4 FL (78-98); MEAN PLATELET VOLUME 8.2 FL (7.4-10.4); MONOCYTES # (AUTO) 1.4 X10'3 (0-0.9); MONOCYTES % (AUTO) 14.1 % (2-12); NEUTROPHILS # (AUTO) 7.2 X10'3 (1.8-7.7); NEUTROPHILS % (AUTO) 70.1 % (42-75); PLATELET COUNT 283 X10'3 (140-440); RED BLOOD COUNT 3.82 X10'6 (4.70-6.10); WHITE BLOOD COUNT 10.2 X10'3 (4.5-11.0)
[2017-12-12 05:52] LABS: ANION GAP 16 (8-16); BILIRUBIN,TOTAL 0.7 MG/DL (0.1-1.0); BLOOD UREA NITROGEN 80 MG/DL (7-18); BUN/CREATININE RATIO 9.1 (5.4-32.0); CALCIUM 9.2 MG/DL (8.5-10.1); CHLORIDE 97 MMOL/L (99-107); CREATININE 8.77 MG/DL (0.60-1.10); GLUCOSE 101 MG/DL (70-104); MAGNESIUM 2.9 MG/DL (1.5-2.4); PHOSPHORUS 6.9 MG/DL (2.3-4.5); SODIUM 139 MMOL/L (135-145); TOTAL CARBON DIOXIDE 25.8 MMOL/L (24-32); TOTAL PROTEIN 6.1 G/DL (6.4-8.2); eGFR 7 ML/MIN
[2017-12-12 05:53] LABS: ALANINE AMINOTRANSFERASE 31 U/L (12-78); ALBUMIN 1.8 G/DL (3.4-5.0); ALBUMIN/GLOBULIN RATIO 0.4 (1.1-1.5); ALKALINE PHOSPHATASE 182 IU/L (46-116); ASPARTATE AMINO TRANSFERASE 36 U/L (10-37); VANCOMYCIN,RANDOM 15.1 UG/ML
[2017-12-12] MEDS: heparin, porcine 5000 units/ml vial SQ SCH ×2 (07:32→19:57)
[2017-12-12] MEDS ORDERED: heparin 1,000unit/ml 10ml vial 10 ML IV ONE (08:00)
[2017-12-12] MEDS ORDERED: normal saline 1000ml 250 ML IV PRN (08:00)
[2017-12-12] MEDS ORDERED: heparin 1,000 units/ml 10ml inj HE ONE ×2 (08:00)
[2017-12-12] MEDS: docusate sodium 100mg/10ml UD cup PO SCH ×2 (08:00→19:57)
[2017-12-12] MEDS: lactobacillus rhamnosus 10,000 MMU CELLS/CAPSULE PO SCH ×2 (08:00→19:56)
[2017-12-12] MEDS ORDERED: ipratropium/albuterol 3ml nebule NEB PRN (08:35)
[2017-12-12] MEDS ORDERED: racepinephrine 11.25mg/0.5ml nebule NEB PRN (08:35)
[2017-12-12] MEDS: LORazepam 2 mg/ml vial IV PRN ×2 (12:07→13:46)
[2017-12-12] MEDS: diltiazem 30mg tablet PO SCH ×3 (12:07→19:56)
[2017-12-12 12:50] LABS: ABG BASE EXCESS 2.1 mmol/L (-2.0-3.0); ABG OXYGEN SATURATION 96.3 % (95-98); ABG PCO2 (T) 33.3 mmHg (35.0-48.0); ABG PH (T) 7.493 (7.350-7.450); ALLEN'S TEST Positive; FCOHb 0.3 % (0.5-1.5); FLOW 2 L/min; FMetHb 0.3 % (0.3-1.12); FO2Hb 95.7 % (94-100); TOTAL HEMOGLOBIN 12.2 G/dl (14.0-18.0)
[2017-12-12] MEDS: fentaNYL/PF 50MCG/1 ML 2ML syringe IV PRN ×2 (12:51→13:46)
[2017-12-12] MEDS: acetaminophen 325mg tablet PO PRN (23:02)
[2017-12-13] VITALS (24 sets, daily range): BP systolic 119–180; BP diastolic 73–109
[2017-12-13] MEDS: mineral oil/petrolatum ophthal oint EACHEYE SCH ×4 (02:00→19:07)
[2017-12-13] MEDS: ipratropium/albuterol 3ml nebule NEB SCH ×4 (02:20→20:59)
[2017-12-13] MEDS: piperacillin-tazo 2.25gm/50ml 50 ML IV SCH ×4 (02:36→19:19)
[2017-12-13] MEDS: diltiazem 30mg tablet PO SCH ×4 (02:40→19:20)
[2017-12-13 05:06] LABS: BASOPHILS % (AUTO) 0.2 % (0-1); EOSINOPHILS # (AUTO) 0.2 X10'3 (0-0.9); EOSINOPHILS % (AUTO) 1.8 % (0-6); HEMOGLOBIN 11.3 g/dl (14.0-17.9); LYMPHOCYTES # (AUTO) 1.4 X10'3 (1.1-4.8); LYMPHOCYTES % (AUTO) 11.1 % (21-51); MEAN CORPUSCULAR HEMOGLOBIN 29.6 PG (27.0-31.0); MEAN CORPUSCULAR HGB CONC 34.4 % (33.0-36.5); MEAN CORPUSCULAR VOLUME 86.2 FL (78-98); MEAN PLATELET VOLUME 8.3 FL (7.4-10.4); MONOCYTES # (AUTO) 1.6 X10'3 (0-0.9); MONOCYTES % (AUTO) 12.5 % (2-12); NEUTROPHILS # (AUTO) 9.7 X10'3 (1.8-7.7); NEUTROPHILS % (AUTO) 74.4 % (42-75); PLATELET COUNT 314 X10'3 (140-440); RED BLOOD COUNT 3.82 X10'6 (4.70-6.10); RED CELL DISTRIBUTION WIDTH 13.7 % (11.5-14.5); WHITE BLOOD COUNT 13.1 X10'3 (4.5-11.0)
[2017-12-13 06:15] LABS: ALANINE AMINOTRANSFERASE 52 U/L (12-78); ALBUMIN/GLOBULIN RATIO 0.5 (1.1-1.5); ALKALINE PHOSPHATASE 212 IU/L (46-116); ANION GAP 12 (8-16); ASPARTATE AMINO TRANSFERASE 56 U/L (10-37); BILIRUBIN,TOTAL 0.6 MG/DL (0.1-1.0); BLOOD UREA NITROGEN 56 MG/DL (7-18); BUN/CREATININE RATIO 8.4 (5.4-32.0); CALCIUM 8.5 MG/DL (8.5-10.1); CHLORIDE 96 MMOL/L (99-107); GLUCOSE 115 MG/DL (70-104); MAGNESIUM 2.5 MG/DL (1.5-2.4); PHOSPHORUS 5.4 MG/DL (2.3-4.5); POTASSIUM 3.5 MMOL/L (3.5-5.1); SODIUM 135 MMOL/L (135-145); TOTAL CARBON DIOXIDE 26.7 MMOL/L (24-32); TOTAL PROTEIN 6.2 G/DL (6.4-8.2); eGFR 10 ML/MIN
[2017-12-13] MEDS: lactobacillus rhamnosus 10,000 MMU CELLS/CAPSULE PO SCH ×2 (08:08→19:20)
[2017-12-13] MEDS: docusate sodium 100mg/10ml UD cup PO SCH ×2 (08:08→19:09)
[2017-12-13] MEDS: heparin, porcine 5000 units/ml vial SQ SCH ×2 (08:09→19:22)
[2017-12-13] MEDS ORDERED: calcium carbonate 500mg chew tablet PO SCH (15:45)
[2017-12-13] MEDS ORDERED: calcium carbonate 500mg chew tablet PO PRN (15:55)
[2017-12-13] MEDS ORDERED: temazepam 15mg capsule PO ONE (22:45)
[2017-12-14] VITALS (19 sets, daily range): BP systolic 129–161; BP diastolic 61–99
[2017-12-14] MEDS: mineral oil/petrolatum ophthal oint EACHEYE SCH ×4 (02:00→20:00)
[2017-12-14] MEDS: piperacillin-tazo 2.25gm/50ml 50 ML IV SCH ×4 (02:21→20:22)
[2017-12-14] MEDS: diltiazem 30mg tablet PO SCH ×4 (02:22→20:21)
[2017-12-14] MEDS: ipratropium/albuterol 3ml nebule NEB SCH ×4 (03:10→20:41)
[2017-12-14 04:06] LABS: BASOPHILS % (AUTO) 0.2 % (0-1); EOSINOPHILS # (AUTO) 0.4 X10'3 (0-0.9); EOSINOPHILS % (AUTO) 3.1 % (0-6); HEMATOCRIT 32.9 % (42.0-52.0); HEMOGLOBIN 11.3 g/dl (14.0-17.9); LYMPHOCYTES # (AUTO) 1.6 X10'3 (1.1-4.8); LYMPHOCYTES % (AUTO) 12.3 % (21-51); MEAN CORPUSCULAR HEMOGLOBIN 29.3 PG (27.0-31.0); MEAN CORPUSCULAR HGB CONC 34.4 % (33.0-36.5); MEAN CORPUSCULAR VOLUME 84.9 FL (78-98); MEAN PLATELET VOLUME 8.4 FL (7.4-10.4); MONOCYTES # (AUTO) 1.1 X10'3 (0-0.9); MONOCYTES % (AUTO) 8.7 % (2-12); NEUTROPHILS % (AUTO) 75.7 % (42-75); PLATELET COUNT 409 X10'3 (140-440); RED BLOOD COUNT 3.88 X10'6 (4.70-6.10); RED CELL DISTRIBUTION WIDTH 13.9 % (11.5-14.5); WHITE BLOOD COUNT 13.3 X10'3 (4.5-11.0)
[2017-12-14 04:21] LABS: ALANINE AMINOTRANSFERASE 56 U/L (12-78); ALBUMIN/GLOBULIN RATIO 0.5 (1.1-1.5); ALKALINE PHOSPHATASE 167 IU/L (46-116); ANION GAP 14 (8-16); ASPARTATE AMINO TRANSFERASE 36 U/L (10-37); BILIRUBIN,TOTAL 0.5 MG/DL (0.1-1.0); BLOOD UREA NITROGEN 79 MG/DL (7-18); BUN/CREATININE RATIO 9.4 (5.4-32.0); CALCIUM 8.5 MG/DL (8.5-10.1); CHLORIDE 94 MMOL/L (99-107); CREATININE 8.37 MG/DL (0.60-1.10); GLUCOSE 117 MG/DL (70-104); MAGNESIUM 2.5 MG/DL (1.5-2.4); PHOSPHORUS 6.4 MG/DL (2.3-4.5); POTASSIUM 3.4 MMOL/L (3.5-5.1); SODIUM 132 MMOL/L (135-145); TOTAL CARBON DIOXIDE 23.6 MMOL/L (24-32); eGFR 8 ML/MIN
[2017-12-14] MEDS ORDERED: heparin 1,000unit/ml 10ml vial 10 ML IV ONE (07:54)
[2017-12-14] MEDS ORDERED: normal saline 1000ml 250 ML IV PRN (07:54)
[2017-12-14] MEDS ORDERED: heparin 1,000 units/ml 10ml inj IV ONE (07:55)
[2017-12-14] MEDS ORDERED: heparin 1,000 units/ml 10ml inj HE ONE (08:00)
[2017-12-14] MEDS: docusate sodium 100mg/10ml UD cup PO SCH ×2 (08:00→20:00)
[2017-12-14] MEDS: acetaminophen 325mg tablet PO PRN (08:30)
[2017-12-14] MEDS: heparin, porcine 5000 units/ml vial SQ SCH ×2 (08:30→20:19)
[2017-12-14] MEDS: lactobacillus rhamnosus 10,000 MMU CELLS/CAPSULE PO SCH ×2 (08:31→20:21)
[2017-12-14] MEDS: zolpidem 5mg tablet PO PRN (20:21)
[2017-12-15] MEDS: mineral oil/petrolatum ophthal oint EACHEYE SCH ×4 (02:00→19:56)
[2017-12-15] MEDS: piperacillin-tazo 2.25gm/50ml 50 ML IV SCH ×4 (02:06→19:57)
[2017-12-15] MEDS: diltiazem 30mg tablet PO SCH ×4 (02:06→19:58)
[2017-12-15 03:00] VITALS: BP 136/83
[2017-12-15] MEDS: ipratropium/albuterol 3ml nebule NEB SCH ×4 (03:00→21:00)
[2017-12-15 06:04] LABS: BASOPHILS % (AUTO) 0.4 % (0-1); EOSINOPHILS # (AUTO) 0.5 X10'3 (0-0.9); EOSINOPHILS % (AUTO) 3.8 % (0-6); HEMATOCRIT 32.7 % (42.0-52.0); HEMOGLOBIN 11.1 g/dl (14.0-17.9); LYMPHOCYTES # (AUTO) 1.6 X10'3 (1.1-4.8); LYMPHOCYTES % (AUTO) 12.4 % (21-51); MEAN CORPUSCULAR HEMOGLOBIN 28.8 PG (27.0-31.0); MEAN CORPUSCULAR HGB CONC 33.9 % (33.0-36.5); MEAN PLATELET VOLUME 8.7 FL (7.4-10.4); MONOCYTES # (AUTO) 1.1 X10'3 (0-0.9); MONOCYTES % (AUTO) 8.4 % (2-12); NEUTROPHILS # (AUTO) 9.6 X10'3 (1.8-7.7); PLATELET COUNT 461 X10'3 (140-440); RED BLOOD COUNT 3.85 X10'6 (4.70-6.10); RED CELL DISTRIBUTION WIDTH 13.6 % (11.5-14.5); WHITE BLOOD COUNT 12.8 X10'3 (4.5-11.0)
[2017-12-15 06:17] LABS: ALANINE AMINOTRANSFERASE 43 U/L (12-78); ALBUMIN 1.9 G/DL (3.4-5.0); ALBUMIN/GLOBULIN RATIO 0.5 (1.1-1.5); ALKALINE PHOSPHATASE 134 IU/L (46-116); ANION GAP 19 (8-16); ASPARTATE AMINO TRANSFERASE 23 U/L (10-37); BILIRUBIN,TOTAL 0.5 MG/DL (0.1-1.0); BLOOD UREA NITROGEN 90 MG/DL (7-18); BUN/CREATININE RATIO 8.9 (5.4-32.0); CALCIUM 8.4 MG/DL (8.5-10.1); CHLORIDE 91 MMOL/L (99-107); CREATININE 10.09 MG/DL (0.60-1.10); GLUCOSE 94 MG/DL (70-104); MAGNESIUM 2.4 MG/DL (1.5-2.4); PHOSPHORUS 7.5 MG/DL (2.3-4.5); POTASSIUM 3.5 MMOL/L (3.5-5.1); PREALBUMIN 17.9 MG/DL (19-36); SODIUM 129 MMOL/L (135-145); TOTAL CARBON DIOXIDE 18.9 MMOL/L (24-32); TOTAL PROTEIN 5.6 G/DL (6.4-8.2); eGFR 6 ML/MIN
[2017-12-15 06:37] VITALS: BP 128/79
[2017-12-15] MEDS: docusate sodium 100mg/10ml UD cup PO SCH ×2 (08:00→19:13)
[2017-12-15] MEDS ORDERED: heparin 1,000 units/ml 10ml inj HE ONE (08:35)
[2017-12-15] MEDS: lactobacillus rhamnosus 10,000 MMU CELLS/CAPSULE PO SCH ×2 (08:39→19:58)
[2017-12-15] MEDS: heparin, porcine 5000 units/ml vial SQ SCH ×2 (08:40→19:57)
[2017-12-15] MEDS ORDERED: heparin 1,000unit/ml 10ml vial 10 ML IV ONE (10:43)
[2017-12-15] MEDS ORDERED: heparin 1,000 units/ml 10ml inj IV ONE (10:45)
[2017-12-15 11:00] VITALS: BP 142/94
[2017-12-15 15:00] VITALS: BP 96/49
[2017-12-15 19:00] VITALS: BP 136/90
[2017-12-15] MEDS: zolpidem 5mg tablet PO PRN (19:58)
[2017-12-16] MEDS: piperacillin-tazo 2.25gm/50ml 50 ML IV SCH ×4 (00:51→20:30)
[2017-12-16] MEDS: diltiazem 30mg tablet PO SCH ×4 (00:56→20:18)
[2017-12-16] MEDS: mineral oil/petrolatum ophthal oint EACHEYE SCH ×4 (02:00→20:00)
[2017-12-16] MEDS: ipratropium/albuterol 3ml nebule NEB SCH ×2 (02:58→08:11)
[2017-12-16 03:00] VITALS: BP 126/78
[2017-12-16 05:42] LABS: BASOPHILS % (AUTO) 0.1 % (0-1); EOSINOPHILS # (AUTO) 0.4 X10'3 (0-0.9); EOSINOPHILS % (AUTO) 3.3 % (0-6); HEMATOCRIT 31.5 % (42.0-52.0); LYMPHOCYTES # (AUTO) 1.3 X10'3 (1.1-4.8); LYMPHOCYTES % (AUTO) 10.5 % (21-51); MEAN CORPUSCULAR HEMOGLOBIN 29.5 PG (27.0-31.0); MEAN CORPUSCULAR HGB CONC 34.9 % (33.0-36.5); MEAN CORPUSCULAR VOLUME 84.6 FL (78-98); MEAN PLATELET VOLUME 8.5 FL (7.4-10.4); MONOCYTES # (AUTO) 0.9 X10'3 (0-0.9); MONOCYTES % (AUTO) 7.2 % (2-12); NEUTROPHILS # (AUTO) 9.5 X10'3 (1.8-7.7); NEUTROPHILS % (AUTO) 78.9 % (42-75); PLATELET COUNT 444 X10'3 (140-440); RED BLOOD COUNT 3.72 X10'6 (4.70-6.10); RED CELL DISTRIBUTION WIDTH 13.8 % (11.5-14.5); WHITE BLOOD COUNT 12.1 X10'3 (4.5-11.0)
[2017-12-16 06:00] VITALS: BP 104/81
[2017-12-16 06:00] LABS: ALANINE AMINOTRANSFERASE 38 U/L (12-78); ALBUMIN 1.9 G/DL (3.4-5.0); ALBUMIN/GLOBULIN RATIO 0.5 (1.1-1.5); ALKALINE PHOSPHATASE 126 IU/L (46-116); ANION GAP 11 (8-16); ASPARTATE AMINO TRANSFERASE 18 U/L (10-37); BILIRUBIN,TOTAL 0.5 MG/DL (0.1-1.0); BLOOD UREA NITROGEN 48 MG/DL (7-18); BUN/CREATININE RATIO 7.1 (5.4-32.0); CALCIUM 8.1 MG/DL (8.5-10.1); CHLORIDE 95 MMOL/L (99-107); GLUCOSE 94 MG/DL (70-104); MAGNESIUM 1.9 MG/DL (1.5-2.4); PHOSPHORUS 5.1 MG/DL (2.3-4.5); POTASSIUM 3.7 MMOL/L (3.5-5.1); SODIUM 130 MMOL/L (135-145); TOTAL CARBON DIOXIDE 24.2 MMOL/L (24-32); TOTAL PROTEIN 5.6 G/DL (6.4-8.2); eGFR 10 ML/MIN
[2017-12-16] MEDS: docusate sodium 100mg/10ml UD cup PO SCH ×2 (08:00→20:00)
[2017-12-16] MEDS: heparin, porcine 5000 units/ml vial SQ SCH ×2 (08:20→20:19)
[2017-12-16] MEDS: lactobacillus rhamnosus 10,000 MMU CELLS/CAPSULE PO SCH ×2 (08:20→20:19)
[2017-12-16 11:00] VITALS: BP 128/87
[2017-12-16 15:00] VITALS: BP 129/85
[2017-12-16 19:00] VITALS: BP 138/87
[2017-12-16] MEDS: zolpidem 5mg tablet PO PRN (20:29)
[2017-12-16 23:00] VITALS: BP 127/80
[2017-12-17] MEDS: mineral oil/petrolatum ophthal oint EACHEYE SCH ×4 (02:00→20:00)
[2017-12-17] MEDS: piperacillin-tazo 2.25gm/50ml 50 ML IV SCH ×2 (02:26→08:05)
[2017-12-17] MEDS: diltiazem 30mg tablet PO SCH ×4 (02:26→19:35)
[2017-12-17 03:00] VITALS: BP 144/80
[2017-12-17 05:42] LABS: BASOPHILS % (AUTO) 0.3 % (0-1); EOSINOPHILS # (AUTO) 0.4 X10'3 (0-0.9); EOSINOPHILS % (AUTO) 3.4 % (0-6); HEMATOCRIT 32.4 % (42.0-52.0); HEMOGLOBIN 11.1 g/dl (14.0-17.9); LYMPHOCYTES # (AUTO) 1.3 X10'3 (1.1-4.8); LYMPHOCYTES % (AUTO) 10.8 % (21-51); MEAN CORPUSCULAR HEMOGLOBIN 29.2 PG (27.0-31.0); MEAN CORPUSCULAR HGB CONC 34.1 % (33.0-36.5); MEAN CORPUSCULAR VOLUME 85.7 FL (78-98); MEAN PLATELET VOLUME 8.4 FL (7.4-10.4); MONOCYTES % (AUTO) 8.2 % (2-12); NEUTROPHILS # (AUTO) 9.5 X10'3 (1.8-7.7); NEUTROPHILS % (AUTO) 77.3 % (42-75); PLATELET COUNT 535 X10'3 (140-440); RED BLOOD COUNT 3.78 X10'6 (4.70-6.10); RED CELL DISTRIBUTION WIDTH 13.8 % (11.5-14.5); WHITE BLOOD COUNT 12.2 X10'3 (4.5-11.0)
[2017-12-17 06:04] LABS: ALANINE AMINOTRANSFERASE 39 U/L (12-78); ALBUMIN/GLOBULIN RATIO 0.5 (1.1-1.5); ALKALINE PHOSPHATASE 110 IU/L (46-116); ANION GAP 12 (8-16); ASPARTATE AMINO TRANSFERASE 20 U/L (10-37); BILIRUBIN,TOTAL 0.5 MG/DL (0.1-1.0); BLOOD UREA NITROGEN 56 MG/DL (7-18); CALCIUM 8.6 MG/DL (8.5-10.1); CHLORIDE 94 MMOL/L (99-107); GLUCOSE 88 MG/DL (70-104); MAGNESIUM 1.9 MG/DL (1.5-2.4); PHOSPHORUS 6.4 MG/DL (2.3-4.5); POTASSIUM 4.1 MMOL/L (3.5-5.1); SODIUM 130 MMOL/L (135-145); TOTAL PROTEIN 5.9 G/DL (6.4-8.2); eGFR 8 ML/MIN
[2017-12-17] MEDS: docusate sodium 100mg/10ml UD cup PO SCH ×2 (08:00→19:36)
[2017-12-17] MEDS: lactobacillus rhamnosus 10,000 MMU CELLS/CAPSULE PO SCH ×2 (08:05→19:35)
[2017-12-17] MEDS: heparin, porcine 5000 units/ml vial SQ SCH ×2 (08:05→19:40)
[2017-12-17] MEDS ORDERED: heparin 1,000unit/ml 10ml vial 10 ML IV ONE (10:38)
[2017-12-17] MEDS ORDERED: normal saline 1000ml 250 ML IV PRN (10:38)
[2017-12-17] MEDS ORDERED: heparin 1,000 units/ml 10ml inj HE ONE ×2 (10:45)
[2017-12-17 11:00] VITALS: BP 115/72
[2017-12-17 17:00] VITALS: BP 137/88
[2017-12-17 19:00] VITALS: BP 146/105
[2017-12-17] MEDS: zolpidem 5mg tablet PO PRN (19:34)
[2017-12-17 23:00] VITALS: BP 133/73
[2017-12-18] MEDS: mineral oil/petrolatum ophthal oint EACHEYE SCH ×2 (02:00→08:00)
[2017-12-18] MEDS: diltiazem 30mg tablet PO SCH ×4 (02:12→19:34)
[2017-12-18 03:00] VITALS: BP 133/73
[2017-12-18 05:57] LABS: BASOPHILS % (AUTO) 0.1 % (0-1); EOSINOPHILS # (AUTO) 0.3 X10'3 (0-0.9); EOSINOPHILS % (AUTO) 2.6 % (0-6); HEMATOCRIT 32.6 % (42.0-52.0); LYMPHOCYTES # (AUTO) 1.3 X10'3 (1.1-4.8); MEAN CORPUSCULAR HGB CONC 33.8 % (33.0-36.5); MEAN CORPUSCULAR VOLUME 85.8 FL (78-98); MEAN PLATELET VOLUME 8.1 FL (7.4-10.4); MONOCYTES # (AUTO) 0.9 X10'3 (0-0.9); MONOCYTES % (AUTO) 9.4 % (2-12); NEUTROPHILS # (AUTO) 7.2 X10'3 (1.8-7.7); NEUTROPHILS % (AUTO) 74.9 % (42-75); PLATELET COUNT 657 X10'3 (140-440); RED CELL DISTRIBUTION WIDTH 13.8 % (11.5-14.5); WHITE BLOOD COUNT 9.7 X10'3 (4.5-11.0)
[2017-12-18 06:00] VITALS: BP 117/68
[2017-12-18 06:14] LABS: ALANINE AMINOTRANSFERASE 40 U/L (12-78); ALBUMIN 2.2 G/DL (3.4-5.0); ALBUMIN/GLOBULIN RATIO 0.5 (1.1-1.5); ALKALINE PHOSPHATASE 115 IU/L (46-116); ANION GAP 8 (8-16); ASPARTATE AMINO TRANSFERASE 23 U/L (10-37); BILIRUBIN,TOTAL 0.3 MG/DL (0.1-1.0); BLOOD UREA NITROGEN 33 MG/DL (7-18); CALCIUM 8.4 MG/DL (8.5-10.1); CHLORIDE 100 MMOL/L (99-107); CREATININE 5.51 MG/DL (0.60-1.10); GLUCOSE 117 MG/DL (70-104); MAGNESIUM 1.9 MG/DL (1.5-2.4); PHOSPHORUS 5.3 MG/DL (2.3-4.5); POTASSIUM 3.6 MMOL/L (3.5-5.1); SODIUM 135 MMOL/L (135-145); TOTAL CARBON DIOXIDE 26.7 MMOL/L (24-32); TOTAL PROTEIN 6.5 G/DL (6.4-8.2); eGFR 12 ML/MIN
[2017-12-18] MEDS: heparin, porcine 5000 units/ml vial SQ SCH ×2 (08:05→19:35)
[2017-12-18] MEDS: lactobacillus rhamnosus 10,000 MMU CELLS/CAPSULE PO SCH ×2 (08:05→19:34)
[2017-12-18] MEDS: docusate sodium 100mg/10ml UD cup PO SCH ×2 (08:05→19:36)
[2017-12-18 11:00] VITALS: BP 132/67
[2017-12-18 15:00] VITALS: BP 141/90
[2017-12-18 19:00] VITALS: BP 127/80
[2017-12-18] MEDS: zolpidem 5mg tablet PO PRN (19:43)
[2017-12-18 23:00] VITALS: BP 156/76
[2017-12-19] MEDS: diltiazem 30mg tablet PO SCH ×3 (01:10→14:00)
[2017-12-19 06:00] VITALS: BP 122/84
[2017-12-19 06:25] LABS: BASOPHILS # (AUTO) 0.1 X10'3 (0-0.2); BASOPHILS % (AUTO) 0.5 % (0-1); EOSINOPHILS # (AUTO) 0.2 X10'3 (0-0.9); EOSINOPHILS % (AUTO) 2.3 % (0-6); HEMOGLOBIN 11.4 g/dl (14.0-17.9); LYMPHOCYTES # (AUTO) 1.9 X10'3 (1.1-4.8); LYMPHOCYTES % (AUTO) 17.5 % (21-51); MEAN CORPUSCULAR HEMOGLOBIN 29.6 PG (27.0-31.0); MEAN CORPUSCULAR HGB CONC 34.7 % (33.0-36.5); MEAN CORPUSCULAR VOLUME 85.4 FL (78-98); MEAN PLATELET VOLUME 8.3 FL (7.4-10.4); MONOCYTES # (AUTO) 0.9 X10'3 (0-0.9); MONOCYTES % (AUTO) 8.6 % (2-12); NEUTROPHILS # (AUTO) 7.6 X10'3 (1.8-7.7); NEUTROPHILS % (AUTO) 71.1 % (42-75); PLATELET COUNT 792 X10'3 (140-440); RED BLOOD COUNT 3.87 X10'6 (4.70-6.10); WHITE BLOOD COUNT 10.6 X10'3 (4.5-11.0)
[2017-12-19 06:40] LABS: ALANINE AMINOTRANSFERASE 42 U/L (12-78); ALBUMIN 2.6 G/DL (3.4-5.0); ALBUMIN/GLOBULIN RATIO 0.6 (1.1-1.5); ALKALINE PHOSPHATASE 117 IU/L (46-116); ANION GAP 8 (8-16); ASPARTATE AMINO TRANSFERASE 22 U/L (10-37); BILIRUBIN,TOTAL 0.5 MG/DL (0.1-1.0); BLOOD UREA NITROGEN 42 MG/DL (7-18); BUN/CREATININE RATIO 6.6 (5.4-32.0); CALCIUM 8.8 MG/DL (8.5-10.1); CHLORIDE 100 MMOL/L (99-107); CREATININE 6.36 MG/DL (0.60-1.10); GLUCOSE 101 MG/DL (70-104); MAGNESIUM 1.7 MG/DL (1.5-2.4); POTASSIUM 3.8 MMOL/L (3.5-5.1); SODIUM 136 MMOL/L (135-145); TOTAL CARBON DIOXIDE 27.9 MMOL/L (24-32); TOTAL PROTEIN 6.8 G/DL (6.4-8.2); eGFR 11 ML/MIN
[2017-12-19] MEDS: docusate sodium 100mg/10ml UD cup PO SCH (08:00)
[2017-12-19] MEDS: lactobacillus rhamnosus 10,000 MMU CELLS/CAPSULE PO SCH (09:12)
[2017-12-19] MEDS: heparin, porcine 5000 units/ml vial SQ SCH (09:12)
[2017-12-19] MEDS ORDERED: heparin 1,000unit/ml 10ml vial 10 ML IV ONE ×2 (09:21→09:38)
[2017-12-19] MEDS ORDERED: normal saline 1000ml 250 ML IV PRN (09:21)
[2017-12-19] MEDS ORDERED: heparin 1,000 units/ml 10ml inj HE ONE ×2 (09:25)
[2017-12-19] MEDS ORDERED: heparin 1,000 units/ml 10ml inj IV ONE (09:40)
[2017-12-19 11:34] VITALS: BP 148/94
[2017-12-23 06:05] LABS: HEP B CORE AB, TOT Negative (Negative)
== END 2017-12-19 17:05 | disposition home or self-care (01) | DRG 917 ==
LOC: ER 16:40 → ED HOLD 19:41 → ICU 2S 21:05 → PCU 3S 12-14 19:47
PROVIDERS: ADMIT Internal Medicine Critical Care Medicine; ATTEND Internal Medicine Critical Care Medicine
PROC: 0BH17EZ Insertion of Endotracheal Airway into Trachea, Via Natural or Artificial Opening (ICD-10-PCS; 2017-12-04)
PROC: 5A1945Z Respiratory Ventilation, 24-96 Consecutive Hours (ICD-10-PCS; 2017-12-04)
PROC: 5A1D70Z Performance of Urinary Filtration, Intermittent, Less than 6 Hours Per Day (ICD-10-PCS; 2017-12-05)
PROC: 5A1955Z Respiratory Ventilation, Greater than 96 Consecutive Hours (ICD-10-PCS; principal; 2017-12-07)
PROC: 0BH17EZ Insertion of Endotracheal Airway into Trachea, Via Natural or Artificial Opening (ICD-10-PCS; 2017-12-07)
PROC: 5A1D70Z Performance of Urinary Filtration, Intermittent, Less than 6 Hours Per Day (ICD-10-PCS; 2017-12-07)
PROC: 5A1D70Z Performance of Urinary Filtration, Intermittent, Less than 6 Hours Per Day (ICD-10-PCS; 2017-12-08)
PROC: 0JH63XZ Insertion of Tunneled Vascular Access Device into Chest Subcutaneous Tissue and Fascia, Percutaneous Approach (ICD-10-PCS; 2017-12-10)
PROC: 02HV33Z Insertion of Infusion Device into Superior Vena Cava, Percutaneous Approach (ICD-10-PCS; 2017-12-10)
PROC: B548ZZA Ultrasonography of Superior Vena Cava, Guidance (ICD-10-PCS; 2017-12-10)
PROC: 5A1D70Z Performance of Urinary Filtration, Intermittent, Less than 6 Hours Per Day (ICD-10-PCS; 2017-12-10)
PROC: 5A1D70Z Performance of Urinary Filtration, Intermittent, Less than 6 Hours Per Day (ICD-10-PCS; 2017-12-12)
PROC: 5A1D70Z Performance of Urinary Filtration, Intermittent, Less than 6 Hours Per Day (ICD-10-PCS; 2017-12-15)
PROC: 5A1D70Z Performance of Urinary Filtration, Intermittent, Less than 6 Hours Per Day (ICD-10-PCS; 2017-12-17)
PROC: 5A1D70Z Performance of Urinary Filtration, Intermittent, Less than 6 Hours Per Day (ICD-10-PCS; 2017-12-19)
DX: T42.3X2A Poisoning by barbiturates, intentional self-harm, initial encounter (principal); J96.01 Acute respiratory failure with hypoxia; G92 Toxic encephalopathy; J69.0 Pneumonitis due to inhalation of food and vomit; E87.2 Acidosis; N17.9 Acute kidney failure, unspecified; T82.41XA Breakdown (mechanical) of vascular dialysis catheter, initial encounter; N11.9 Chronic tubulo-interstitial nephritis, unspecified; F19.10 Other psychoactive substance abuse, uncomplicated; R15.9 Full incontinence of feces; R32 Unspecified urinary incontinence; E87.5 Hyperkalemia; T51.92XA Toxic effect of unspecified alcohol, intentional self-harm, initial encounter; T40.602A Poisoning by unspecified narcotics, intentional self-harm, initial encounter; T52.8X2A Toxic effect of other organic solvents, intentional self-harm, initial encounter; T43.622A Poisoning by amphetamines, intentional self-harm, initial encounter; T39.092A Poisoning by salicylates, intentional self-harm, initial encounter; T52 Toxic effect of organic solvents; F32.9 Major depressive disorder, single episode, unspecified; F43.10 Post-traumatic stress disorder, unspecified; F15.90 Other stimulant use, unspecified, uncomplicated; F41.9 Anxiety disorder, unspecified; R56.9 Unspecified convulsions; R34 Anuria and oliguria; Z99.2 Dependence on renal dialysis; Z79.899 Other long term (current) drug therapy; Z91.5 Personal history of self-harm; Y82.8 Other medical devices associated with adverse incidents; Y92.238 Other place in hospital as the place of occurrence of the external cause; Y92.89 Other specified places as the place of occurrence of the external cause
CPT/HCPCS: 36415; 36558; 36600; 70450; 71045; 71250; 74176; 76937; 77001; 80053; 80178; 80202; 80305; 80320; 80329; 81001; 82009; 82140; 82436; 82550; 82570; 82803; 82945; 82948; 83605; 83735; 83930; 83935; 84100; 84133; 84134; 84300; 84443; 84484; 84520; 84540; 85018; 85025; 85610; 85730; 86704; 86706; 87040; 87070; 87077; 87207; 87340; 90935; 93005; 94002; 94003; 94640; 94760; 96365; 96367; 96375; 97116; 97161; 99291; 99292; A4357; A6213; A6251; A6257; A6258; A6402; A6449; A7015; A9270; C1750; C1758; C1894; G0257; J0133; J0360; J0696; J1644; J1940; J2001; J2060; J2250; J2405; J2543; J2704; J2997; J3010; J3370; J3490; J7030; Q2009